=== PATIENT | male | born 1975 | race African-American/Black ===

== ENCOUNTER 2016-11-27 12:50 | Emergency (ER) | payer MEDICAID ==
[~2016-11-27] VITALS: Ht 170.2 cm; Wt 60.0 kg
[~2016-11-27 12:50] MED LIST: CALC667C PO; FOLI1TAB63 PO; KEPP500 PO; PHEN100C4 PO; PYRI50TA9 PO
[2016-11-27 14:58] LABS: HEMATOCRIT. 24.5 % (42.0-52.0); HEMOGLOBIN. 8.4 g/dL (14.0-18.0); MEAN CORPUSCULAR HEMOGLOBIN 34.3 pg (28.0-32.0); MEAN CORPUSCULAR HGB CONC 34.2 g/dL (31.0-37.0); MEAN CORPUSCULAR VOLUME 100.3 fL (80.0-94.0); MEAN PLATELET VOLUME 7.1 fl (7.4-10.4); PLATELET 85 x1000/uL (130-400); RED BLOOD CELL COUNT 2.44 mill/uL (4.7-6.1); WHITE BLOOD COUNT 10.3 x1000/uL (4.5-11.0)
[2016-11-27 15:02] LABS: PROTHROMBIN TIME 10.6 sec
[2016-11-27 15:05] LABS: DIFFERENTIAL COMMENT 1
[2016-11-27 15:09] LABS: ALANINE AMINOTRANSFERASE 11 IU/L (13-61); ALBUMIN 2.7 g/dL (3.4-5.0); ANION GAP 20; CALCIUM 7.9 mg/dL (8.5-10.1); CARBON DIOXIDE 25 mEq/L (21-32); CHLORIDE 97 mEq/L (98-107); INDEX HEMOLYSI 1 (1-3); INDEX ICTERIC 1 (1-4); INDEX LIPEMIC 1 (1-3); UREA NITROGEN BLOOD 40 mg/dL (7-21); eGFR 11 mL/min (>60)
[2016-11-27 15:45] LABS: PLATELET ESTIMATE DECREASED
[2016-11-27] MEDS ORDERED: HYDROCODONE/ACETAMINOPHEN 5/325MG TABLET PO ONE (17:00)
[2016-11-27 19:30] VITALS: BP 170/102
== END 2016-11-27 20:40 | disposition home or self-care (01) ==
LOC: ER 12:53
DX: B34.9 Viral infection, unspecified (principal); N18.6 End stage renal disease; Z99.2 Dependence on renal dialysis; Z86.73 Personal history of transient ischemic attack (TIA), and cerebral infarction without residual deficits; Z79.899 Other long term (current) drug therapy
CPT/HCPCS: 36415; 36556; 71010; 73502; 80053; 83605; 85025; 85610; 87040; 87077; 87086; 87186; 99285

== ENCOUNTER 2016-12-06 21:11 | Emergency (ER) | payer MEDICAID ==
[~2016-12-06] VITALS: Ht 180.3 cm; Wt 61.0 kg
[2016-12-06] MEDS ORDERED: IPRATROPIUM/ALBUTEROL 0.5-3(2.5)MG/3ML NEB HHN ONE (23:15)
[2016-12-06 23:25] VITALS: BP 179/97
[2016-12-06 23:30] LABS: HEMATOCRIT 22.6 % (42.0-52.0); HEMOGLOBIN 7.8 g/dL (14.0-18.0); MEAN CORPUSCULAR HGB CONC 34.3 g/dL (31.0-37.0); PLATELET 271 x1000/uL (130-400); RED BLOOD CELL COUNT 2.28 mill/uL (4.7-6.1); RED CELL DISTRIBUTION WIDTH 14.7 % (11.6-14.6); WHITE BLOOD COUNT 4.7 x1000/uL (4.5-11.0)
[2016-12-06 23:34] LABS: CLARITY URINE TURBID (CLEAR); COLOR URINE YELLOW (YELLOW); GLUCOSE URINE NEGATIVE (NEGATIVE); KETONES URINE NEGATIVE (NEGATIVE); LEUKOCYTE ESTERASE URINE 3+ (NEGATIVE); NITRITE URINE NEGATIVE (NEGATIVE); OCCULT BLOOD URINE 1+ (NEGATIVE); PROTEIN URINE 3+ (NEGATIVE); SPECIFIC GRAVITY URINE 1.013 (1.005-1.030)
[2016-12-06 23:50] LABS: *AMPHETAMINES SCREEN URINE NEGATIVE (NEGATIVE); *BARBITURATES SCREEN URINE NEGATIVE (NEGATIVE); *BENZODIAZEPINES SCREEN URINE NEGATIVE (NEGATIVE); *COCAINE SCREEN URINE NEGATIVE (NEGATIVE); CANNABINOID URINE SCREEN NEGATIVE (NEGATIVE); ECSTASY MDMA SCREEN URINE NEGATIVE (NEGATIVE); METHADONE URINE SCREEN NEGATIVE (NEGATIVE); OPIATES URINE SCREEN NEGATIVE (NEGATIVE); PHENCYCLIDINE URINE SCREEN NEGATIVE (NEGATIVE)
[2016-12-07 00:45] LABS: SQUAMOUS EPITHELIAL CELL URINE FEW /lpf (RARE/1+); WBC URINE TNTC /hpf (0-2)
[2016-12-07 00:47] LABS: BACTERIA URINE 4+
== END 2016-12-07 01:05 | disposition home or self-care (01) ==
LOC: ER 21:14
DX: J45.901 Unspecified asthma with (acute) exacerbation (principal); N39.0 Urinary tract infection, site not specified; Z91.14 Patient's other noncompliance with medication regimen; D53.9 Nutritional anemia, unspecified; R80.9 Proteinuria, unspecified; N17.0 Acute kidney failure with tubular necrosis; F17.210 Nicotine dependence, cigarettes, uncomplicated; Z79.899 Other long term (current) drug therapy; Z86.73 Personal history of transient ischemic attack (TIA), and cerebral infarction without residual deficits; Z99.2 Dependence on renal dialysis
CPT/HCPCS: 36415; 71010; 80305; 81001; 85027; 94640; 99285; Z7610; 80053; J7620

== ENCOUNTER 2017-01-10 23:51 | Emergency (ER) | payer MEDICAID ==
[~2017-01-10] VITALS: Ht 170.2 cm; Wt 55.0 kg
[2017-01-11] MEDS ORDERED: METOPROLOL TARTRATE 25MG TABLET PO ONE (00:30)
[2017-01-11] MEDS ORDERED: SODIUM CHLORIDE 0.9% 500 ML IV ONE (00:53)
[2017-01-11 01:53] LABS: BASOPHILS % 0.3 % (0.0-2.0); EOSINOPHILS % 2.2 % (0.0-5.0); HEMATOCRIT. 30.9 % (42.0-52.0); HEMOGLOBIN. 10.4 g/dL (14.0-18.0); LYMPHOCYTES % 23.4 % (20.0-50.0); MEAN CORPUSCULAR HEMOGLOBIN 32.3 pg (28.0-32.0); MEAN CORPUSCULAR HGB CONC 33.6 g/dL (31.0-37.0); MEAN CORPUSCULAR VOLUME 96.1 fL (80.0-94.0); MEAN PLATELET VOLUME 7.8 fl (7.4-10.4); MONOCYTES % 6.2 % (2.0-8.0); NEUTROPHILS % 67.9 % (40.0-76.0); PLATELET 100 x1000/uL (130-400); RED BLOOD CELL COUNT 3.21 mill/uL (4.7-6.1); RED CELL DISTRIBUTION WIDTH 18.9 % (11.6-14.6); WHITE BLOOD COUNT 4.6 x1000/uL (4.5-11.0)
[2017-01-11 01:55] LABS: CHLORIDE 98 mEq/L (98-107); INDEX HEMOLYSI 2 (1-3); INDEX ICTERIC 1 (1-4); INDEX LIPEMIC 1 (1-3)
[2017-01-11 01:56] LABS: INR 1.1; PROTHROMBIN TIME 10.9 sec
[2017-01-11 02:03] LABS: ALANINE AMINOTRANSFERASE 10 IU/L (13-61); ALBUMIN 2.8 g/dL (3.4-5.0); ANION GAP 14; CALCIUM 8.2 mg/dL (8.5-10.1); CARBON DIOXIDE 29 mEq/L (21-32); UREA NITROGEN BLOOD 27 mg/dL (7-21); eGFR 23 mL/min (>60)
[2017-01-11 03:45] VITALS: BP 165/88
== END 2017-01-11 03:52 | disposition home or self-care (01) ==
LOC: ER 23:55
DX: I12.0 Hypertensive chronic kidney disease with stage 5 chronic kidney disease or end stage renal disease (principal); J45.909 Unspecified asthma, uncomplicated; N18.6 End stage renal disease; Z99.2 Dependence on renal dialysis; Z86.73 Personal history of transient ischemic attack (TIA), and cerebral infarction without residual deficits; Z79.899 Other long term (current) drug therapy
CPT/HCPCS: 36415; 71010; 80053; 85025; 85610; 93005; 99285; Z7610; J7030

== ENCOUNTER 2017-01-27 11:55 | Inpatient (IN) | payer MEDICAID ==
[~2017-01-27] VITALS: Ht 182.9 cm; Wt 51.7 kg
[2017-01-27 13:43] LABS: CLARITY URINE CLEAR (CLEAR); COLOR URINE YELLOW (YELLOW); GLUCOSE URINE NEGATIVE (NEGATIVE); KETONES URINE NEGATIVE (NEGATIVE); LEUKOCYTE ESTERASE URINE 1+ (NEGATIVE); NITRITE URINE NEGATIVE (NEGATIVE); OCCULT BLOOD URINE NEGATIVE (NEGATIVE); PH URINE 8.5 (4.5-8.0); PROTEIN URINE 4+ (NEGATIVE); SPECIFIC GRAVITY URINE 1.014 (1.005-1.030)
[2017-01-27] MEDS ORDERED: HYDR100T26 PO (13:52)
[2017-01-27] MEDS ORDERED: AMLO1TAB39 PO (13:53)
[2017-01-27 14:09] LABS: RBC URINE 0-2 /hpf (0-2); SQUAMOUS EPITHELIAL CELL URINE 1+ /lpf (RARE/1+); WBC URINE 15-25 /hpf (0-2)
[2017-01-27 14:10] LABS: BACTERIA URINE TRACE
[2017-01-27 15:42] LABS: PROTHROMBIN TIME 10.7 sec
[2017-01-27 15:47] LABS: BASOPHILS % 1.1 % (0.0-2.0); DIFFERENTIAL COMMENT 0; EOSINOPHILS % 0.2 % (0.0-5.0); LYMPHOCYTES % 12.2 % (20.0-50.0); MEAN CORPUSCULAR HEMOGLOBIN 33.1 pg (28.0-32.0); MEAN CORPUSCULAR HGB CONC 34.7 g/dL (31.0-37.0); MEAN CORPUSCULAR VOLUME 95.3 fL (80.0-94.0); MEAN PLATELET VOLUME 7.6 fl (7.4-10.4); MONOCYTES % 10.8 % (2.0-8.0); NEUTROPHILS % 75.7 % (40.0-76.0); PLATELET 134 x1000/uL (130-400); RED BLOOD CELL COUNT 1.89 mill/uL (4.7-6.1); RED CELL DISTRIBUTION WIDTH 18.6 % (11.6-14.6); WHITE BLOOD COUNT 5.3 x1000/uL (4.5-11.0)
[2017-01-27 15:49] LABS: ALANINE AMINOTRANSFERASE 8 IU/L (13-61); ALBUMIN 2.4 g/dL (3.4-5.0); ANION GAP 17; CALCIUM 7.9 mg/dL (8.5-10.1); CARBON DIOXIDE 24 mEq/L (21-32); CHLORIDE 97 mEq/L (98-107); INDEX HEMOLYSI 1 (1-3); INDEX ICTERIC 1 (1-4); INDEX LIPEMIC 1 (1-3); PHENYTOIN 17.6 ug/mL (10-20); UREA NITROGEN BLOOD 67 mg/dL (7-21); eGFR 9 mL/min (>60)
[2017-01-27 15:52] LABS: HEMOGLOBIN. 6.2 g/dL (14.0-18.0)
[2017-01-27] MEDS ORDERED: IPRATROPIUM/ALBUTEROL 0.5-3(2.5)MG/3ML NEB INH PRN (16:30)
[2017-01-27] MEDS ORDERED: ACETAMINOPHEN 325MG TABLET PO PRN (16:30)
[2017-01-27] MEDS ORDERED: ONDANSETRON HCL 4MG/2ML VIAL IV PRN (16:30)
[2017-01-27 17:01] LABS: *AMPHETAMINES SCREEN URINE NEGATIVE (NEGATIVE); *BARBITURATES SCREEN URINE NEGATIVE (NEGATIVE); *BENZODIAZEPINES SCREEN URINE NEGATIVE (NEGATIVE); *COCAINE SCREEN URINE NEGATIVE (NEGATIVE); CANNABINOID URINE SCREEN NEGATIVE (NEGATIVE); ECSTASY MDMA SCREEN URINE NEGATIVE (NEGATIVE); METHADONE URINE SCREEN NEGATIVE (NEGATIVE); OPIATES URINE SCREEN NEGATIVE (NEGATIVE); PHENCYCLIDINE URINE SCREEN NEGATIVE (NEGATIVE)
[2017-01-27] MEDS: CLONIDINE 0.1MG TABLET PO PRN (19:33)
[2017-01-27 21:58] VITALS: BP 178/110
[2017-01-27 22:00] VITALS: BP 173/111
[2017-01-27] MEDS: HYDROCODONE/ACETAMINOPHEN 5/325MG TABLET PO PRN (22:56)
[2017-01-27] MEDS: HYDRALAZINE 20MG/ML VIAL IV PRN (23:09)
[2017-01-28] VITALS (22 sets, daily range): BP systolic 139–187; BP diastolic 82–117
[2017-01-28] MEDS: CLONIDINE 0.1MG TABLET PO PRN ×2 (01:38→21:50)
[2017-01-28] MEDS: HYDRALAZINE 20MG/ML VIAL IV PRN ×2 (05:50→23:31)
[2017-01-28] MEDS: HYDROCODONE/ACETAMINOPHEN 5/325MG TABLET PO PRN ×3 (07:01→20:13)
[2017-01-28 07:26] LABS: ALANINE AMINOTRANSFERASE 7 IU/L (13-61); ALBUMIN 2.3 g/dL (3.4-5.0); ANION GAP 18; CALCIUM 7.5 mg/dL (8.5-10.1); CARBON DIOXIDE 23 mEq/L (21-32); CHLORIDE 96 mEq/L (98-107); HDL CHOLESTEROL 81 mg/dL (40-59); INDEX HEMOLYSI 1 (1-3); INDEX ICTERIC 1 (1-4); INDEX LIPEMIC 1 (1-3); LDL CHOLESTEROL 20 mg/dL (5-100); TRIGLYCERIDE 76 mg/dL (0-150); TROPONIN I 0.04 ng/mL (0.00-0.04); UREA NITROGEN BLOOD 69 mg/dL (7-21); eGFR 8 mL/min (>60)
[2017-01-28 07:29] LABS: BASOPHILS % 0.5 % (0.0-2.0); EOSINOPHILS % 0.3 % (0.0-5.0); HEMATOCRIT. 22.1 % (42.0-52.0); HEMOGLOBIN. 7.5 g/dL (14.0-18.0); MEAN CORPUSCULAR HGB CONC 33.9 g/dL (31.0-37.0); MEAN CORPUSCULAR VOLUME 94.4 fL (80.0-94.0); MEAN PLATELET VOLUME 8.1 fl (7.4-10.4); MONOCYTES % 9.4 % (2.0-8.0); NEUTROPHILS % 81.8 % (40.0-76.0); PLATELET 140 x1000/uL (130-400); RED BLOOD CELL COUNT 2.34 mill/uL (4.7-6.1); WHITE BLOOD COUNT 6.4 x1000/uL (4.5-11.0)
[2017-01-28] MEDS: CALCIUM ACETATE 667MG CAPSULE PO SCH ×3 (07:53→17:59)
[2017-01-28] MEDS: HYDRALAZINE HCL 100MG TABLET PO SCH ×3 (07:53→17:04)
[2017-01-28] MEDS: LEVETIRACETAM 500MG TABLET PO SCH (07:53)
[2017-01-28] MEDS: PYRIDOXINE HCL 50MG TABLET PO SCH (07:53)
[2017-01-28] MEDS: PHENYTOIN SODIUM EXTENDED 100MG CAPSULE PO SCH ×3 (07:53→17:02)
[2017-01-28] MEDS ORDERED: GUAIFENESIN 200MG/10ML SUGAR FREE UDC PO PRN (15:45)
[2017-01-29] VITALS (10 sets, daily range): BP systolic 141–182; BP diastolic 76–116
[2017-01-29] MEDS: HYDROCODONE/ACETAMINOPHEN 5/325MG TABLET PO PRN ×2 (04:48→08:55)
[2017-01-29] MEDS: CLONIDINE 0.1MG TABLET PO PRN (04:51)
[2017-01-29 06:57] LABS: CALCIUM 8.2 mg/dL (8.5-10.1)
[2017-01-29 07:23] LABS: BASOPHILS % 0.5 % (0.0-2.0); EOSINOPHILS % 1.1 % (0.0-5.0); HEMATOCRIT. 31.1 % (42.0-52.0); HEMOGLOBIN. 10.2 g/dL (14.0-18.0); LYMPHOCYTES % 9.4 % (20.0-50.0); MEAN CORPUSCULAR HEMOGLOBIN 31.5 pg (28.0-32.0); MEAN CORPUSCULAR HGB CONC 32.8 g/dL (31.0-37.0); MEAN CORPUSCULAR VOLUME 96.1 fL (80.0-94.0); MONOCYTES % 6.1 % (2.0-8.0); NEUTROPHILS % 82.9 % (40.0-76.0); RED BLOOD CELL COUNT 3.23 mill/uL (4.7-6.1)
[2017-01-29 07:27] LABS: DIFFERENTIAL COMMENT 1
[2017-01-29] MEDS: PHENYTOIN SODIUM EXTENDED 100MG CAPSULE PO SCH ×2 (08:51→12:34)
[2017-01-29] MEDS: LEVETIRACETAM 500MG TABLET PO SCH (08:51)
[2017-01-29] MEDS: CALCIUM ACETATE 667MG CAPSULE PO SCH ×2 (08:52→12:34)
[2017-01-29] MEDS: HYDRALAZINE HCL 100MG TABLET PO SCH ×2 (08:56→12:35)
[2017-01-29 08:59] LABS: MEAN PLATELET VOLUME 8.6 fl (7.4-10.4); PLATELET 150 x1000/uL (130-400)
[2017-01-29] MEDS ORDERED: METOPROLOL TARTRATE 25MG TABLET PO SCH (09:00)
[2017-01-29] MEDS: PYRIDOXINE HCL 50MG TABLET PO SCH (09:36)
== END 2017-01-29 14:32 | disposition home or self-care (01) | DRG 460 ==
LOC: ER 12:11 → 3WST 21:31
PROVIDERS: ADMIT Internal Medicine; ATTEND Internal Medicine
PROC: 30233N1 Transfusion of Nonautologous Red Blood Cells into Peripheral Vein, Percutaneous Approach (ICD-10-PCS; 2017-01-27)
PROC: 02HV33Z Insertion of Infusion Device into Superior Vena Cava, Percutaneous Approach (ICD-10-PCS; 2017-01-27)
PROC: B5181ZA Fluoroscopy of Superior Vena Cava using Low Osmolar Contrast, Guidance (ICD-10-PCS; 2017-01-27)
PROC: B548ZZA Ultrasonography of Superior Vena Cava, Guidance (ICD-10-PCS; 2017-01-27)
PROC: 5A1D00Z (ICD-10-PCS; principal; 2017-01-28)
DX: I12.0 Hypertensive chronic kidney disease with stage 5 chronic kidney disease or end stage renal disease (principal); J96.20 Acute and chronic respiratory failure, unspecified whether with hypoxia or hypercapnia; E43 Unspecified severe protein-calorie malnutrition; G93.40 Encephalopathy, unspecified; N18.6 End stage renal disease; E11.22 Type 2 diabetes mellitus with diabetic chronic kidney disease; F17.210 Nicotine dependence, cigarettes, uncomplicated; G40.909 Epilepsy, unspecified, not intractable, without status epilepticus; Z86.73 Personal history of transient ischemic attack (TIA), and cerebral infarction without residual deficits; Z79.899 Other long term (current) drug therapy; Z99.2 Dependence on renal dialysis; Z91.19 Patient's noncompliance with other medical treatment and regimen; D63.8 Anemia in other chronic diseases classified elsewhere
CPT/HCPCS: 36415; 36430; 36569; 71010; 76937; 77001; 80048; 80053; 80061; 80185; 80305; 81001; 83605; 84484; 85025; 85610; 86850; 86900; 86920; 87040; 87077; 87086; 87186; 93005; 93970; 99285; C1725; J0360; J7030; J7040; J7050; P9016

== ENCOUNTER 2017-03-14 20:00 | Inpatient (IN) | payer MEDICAID ==
[~2017-03-14] VITALS: Ht 182.9 cm; Wt 48.5 kg
[~2017-03-14 20:00] MED LIST changes: +AMLO1TAB39 PO; +HYDR100T26 PO
[2017-03-14 20:58] LABS: BASOPHILS % 0.8 % (0.0-2.0); EOSINOPHILS % 1.2 % (0.0-5.0); HEMATOCRIT. 38.9 % (42.0-52.0); HEMOGLOBIN. 13.1 g/dL (14.0-18.0); LYMPHOCYTES % 16.9 % (20.0-50.0); MEAN CORPUSCULAR HEMOGLOBIN 35.1 pg (28.0-32.0); MEAN CORPUSCULAR VOLUME 104.6 fL (80.0-94.0); MEAN PLATELET VOLUME 8.9 fl (7.4-10.4); MONOCYTES % 9.5 % (2.0-8.0); NEUTROPHILS % 71.6 % (40.0-76.0); PLATELET 109 x1000/uL (130-400); RED BLOOD CELL COUNT 3.72 mill/uL (4.7-6.1); RED CELL DISTRIBUTION WIDTH 20.1 % (11.6-14.6)
[2017-03-14 21:01] LABS: CHLORIDE 102 mEq/L (98-107)
[2017-03-14 21:09] LABS: CARBON DIOXIDE 29 mEq/L (21-32); PHENYTOIN 14.2 ug/mL (10-20)
[2017-03-15] VITALS (7 sets, daily range): BP systolic 136–195; BP diastolic 77–115
[2017-03-15] MEDS ORDERED: ACETAMINOPHEN 325MG TABLET PO PRN (00:45)
[2017-03-15] MEDS ORDERED: DIPHENHYDRAMINE 50MG/ML VIAL IV PRN (00:45)
[2017-03-15] MEDS ORDERED: ONDANSETRON HCL 4MG/2ML VIAL IV PRN (00:45)
[2017-03-15] MEDS: CLONIDINE 0.1MG TABLET PO PRN ×3 (01:14→12:39)
[2017-03-15] MEDS: SODIUM CHLORIDE 0.9% INJ 3ML FLUSH IVF SCH ×2 (06:12→12:34)
[2017-03-15] MEDS ORDERED: AMLODIPINE 5MG TABLET PO SCH (08:57)
[2017-03-15] MEDS ORDERED: PYRIDOXINE HCL 50MG TABLET PO SCH (09:00)
[2017-03-15] MEDS ORDERED: LEVETIRACETAM 500MG TABLET PO SCH (09:00)
[2017-03-15] MEDS: PHENYTOIN SODIUM EXTENDED 100MG CAPSULE PO SCH ×2 (09:16→12:39)
[2017-03-15] MEDS ORDERED: LIDOCAINE HCL 1% 20ML VIAL (Pyxis) INJ ONE (11:00)
[2017-03-15] MEDS ORDERED: SODIUM BICARBONATE 4% (2.4MEQ) 5ML VIAL IV ONE (11:00)
[2017-03-15] MEDS ORDERED: CEFAZOLIN 1000MG PREMIX 50 ML IV ONE (11:25)
[2017-03-15] MEDS ORDERED: CEFAZOLIN 1000MG PREMIX 50 ML IV SCH (11:45)
[2017-03-15] MEDS ORDERED: LOSARTAN POTASSIUM 100 MG TABLET PO SCH (13:15)
[2017-03-15] MEDS ORDERED: POTASSIUM CHLORIDE 20MEQ TABLET SR PO NR (13:26)
[2017-03-15] MEDS ORDERED: HYDRALAZINE HCL 100MG TABLET PO SCH (14:00)
== END 2017-03-15 16:47 | disposition home or self-care (01) | DRG 167 ==
LOC: ER 20:00 → 6EST 20:45 → EDBEDREQTM 20:50 → EDBEDREQ 20:50 → ENRESERV 21:06
PROVIDERS: ADMIT Internal Medicine; ATTEND Internal Medicine
PROC: 02PAX3Z Removal of Infusion Device from Heart, External Approach (ICD-10-PCS; principal; 2017-03-15)
PROC: 02H633Z Insertion of Infusion Device into Right Atrium, Percutaneous Approach (ICD-10-PCS; 2017-03-15)
PROC: B2141ZZ Fluoroscopy of Right Heart using Low Osmolar Contrast (ICD-10-PCS; 2017-03-15)
DX: T82.41XA Breakdown (mechanical) of vascular dialysis catheter, initial encounter (principal); E43 Unspecified severe protein-calorie malnutrition; N18.6 End stage renal disease; I12.0 Hypertensive chronic kidney disease with stage 5 chronic kidney disease or end stage renal disease; F17.200 Nicotine dependence, unspecified, uncomplicated; E87.6 Hypokalemia; E83.39 Other disorders of phosphorus metabolism; Y71.2 Prosthetic and other implants, materials and accessory cardiovascular devices associated with adverse incidents; G40.909 Epilepsy, unspecified, not intractable, without status epilepticus; Z99.2 Dependence on renal dialysis; Z86.73 Personal history of transient ischemic attack (TIA), and cerebral infarction without residual deficits; Z86.14 Personal history of Methicillin resistant Staphylococcus aureus infection; Y92.89 Other specified places as the place of occurrence of the external cause
CPT/HCPCS: 36415; 36581; 71010; 77001; 80053; 80185; 85025; 99285; C1750; C1769; J0690; J1642; J3490; J7050

== ENCOUNTER 2017-03-28 00:52 | Emergency (ER) | payer MEDICAID ==
[~2017-03-28] VITALS: Ht 177.8 cm; Wt 75.0 kg
[2017-03-28] MEDS ORDERED: ONDANSETRON HCL 4MG/2ML VIAL IV STA (01:37)
[2017-03-28] MEDS ORDERED: MORPHINE SULFATE 4 MG/ML CPJ (NOT FOR IM USE) IV STA (01:37)
[2017-03-28] MEDS ORDERED: HYDRALAZINE 20MG/ML VIAL IV ONE (01:45)
[2017-03-28] MEDS ORDERED: CLONIDINE 0.3MG TABLET PO ONE (02:45)
[2017-03-28] MEDS ORDERED: ONDANSETRON 4MG ODT PO ONE (02:45)
[2017-03-28] MEDS ORDERED: MORPHINE SULFATE 4 MG/ML CPJ (NOT FOR IM USE) IV ONE (02:45)
[2017-03-28 02:51] LABS: HEMATOCRIT. 38.4 % (42.0-52.0); HEMOGLOBIN. 12.8 g/dL (14.0-18.0); MEAN CORPUSCULAR VOLUME 104.6 fL (80.0-94.0); MEAN PLATELET VOLUME 8.5 fl (7.4-10.4); PLATELET 135 x1000/uL (130-400); RED BLOOD CELL COUNT 3.67 mill/uL (4.7-6.1); RED CELL DISTRIBUTION WIDTH 17.7 % (11.6-14.6)
[2017-03-28 03:08] LABS: CARBON DIOXIDE 25 mEq/L (21-32); CHLORIDE 97 mEq/L (98-107); TROPONIN I 0.03 ng/mL (0.00-0.04)
[2017-03-28 03:54] LABS: ATYPICAL LYMPHOCYTES 1; PLATELET ESTIMATE NORMAL
[2017-03-28 04:10] VITALS: BP 200/106
== END 2017-03-28 04:20 | disposition home or self-care (01) ==
LOC: ER 00:52
DX: I12.0 Hypertensive chronic kidney disease with stage 5 chronic kidney disease or end stage renal disease (principal); N19 Unspecified kidney failure; F17.200 Nicotine dependence, unspecified, uncomplicated; R56.9 Unspecified convulsions; Z99.2 Dependence on renal dialysis; Z86.73 Personal history of transient ischemic attack (TIA), and cerebral infarction without residual deficits
CPT/HCPCS: 36415; 71010; 80053; 84484; 85025; 93005; 96374; 99285; J2270; Q0162; Z7610

== ENCOUNTER 2017-04-05 10:54 | Inpatient (IN) | payer MEDICAID ==
[~2017-04-05] VITALS: Ht 182.9 cm; Wt 54.6 kg
[2017-04-05] MEDS ORDERED: HYDRALAZINE 20MG/ML VIAL IV ONE ×2 (11:30→16:45)
[2017-04-05 12:12] LABS: BG BASE EXCESS -0.7 mmol/L (-2.0-2.0); BG CARBOXYHEMOGLOBIN 1.3 % (0.5-1.5); BG DEOXYHEMOGLOBIN 7.4 % (0.0-5.0); BG FRACTION INSPIRED OXYGEN 26; BG METHEMOGLOBIN 0.2 % (0.0-1.5); BG OXYGEN SATURATION 92.5 % (92.0-98.5); BG OXYHEMOGLOBIN 91.1 % (94.0-97.0); BG PCO2 35.1 mmHg (35.0-45.0); BG PH 7.435 (7.350-7.450); BG PO2 70.2 mmHg (75.0-100.0); BG SAMPLE SITE RIGHT BRACHIAL; BG TOTAL HEMOGLOBIN 13.3 g/dL (12.0-18.0); BG VENT MODE NASAL CANNULA
[2017-04-05] MEDS ORDERED: LORAZEPAM 2MG/ML CPJ IV ONE (12:30)
[2017-04-05] MEDS ORDERED: LABETALOL 5MG/ML SYR 20 MG/4 ML SYRINGE IV ONE (12:30)
[2017-04-05] MEDS ORDERED: LORAZEPAM 2MG/ML CPJ ONE (12:36)
[2017-04-05 13:44] LABS: EOSINOPHILS % 1.3 % (0.0-5.0); HEMATOCRIT. 32.9 % (42.0-52.0); LYMPHOCYTES % 12.9 % (20.0-50.0); MEAN CORPUSCULAR HEMOGLOBIN 33.4 pg (28.0-32.0); MEAN CORPUSCULAR VOLUME 99.6 fL (80.0-94.0); MEAN PLATELET VOLUME 7.7 fl (7.4-10.4); MONOCYTES % 2.8 % (2.0-8.0); PLATELET 248 x1000/uL (130-400); RED CELL DISTRIBUTION WIDTH 17.3 % (11.6-14.6)
[2017-04-05] MEDS ORDERED: LEVETIRACETAM 500MG PREMIX 100 ML IV ONE (13:45)
[2017-04-05 13:47] LABS: PROTHROMBIN TIME 10.6 sec
[2017-04-05] MEDS ORDERED: LEVOFLOXACIN 500MG PREMIX 100 ML IV ONE (14:00)
[2017-04-05 14:01] LABS: CARBON DIOXIDE 23 mEq/L (21-32); CHLORIDE 95 mEq/L (98-107); PHENYTOIN 12.4 ug/mL (10-20); PHOSPHORUS 5.1 mg/dL (2.5-4.9); TROPONIN I 0.04 ng/mL (0.00-0.04)
[2017-04-05] MEDS ORDERED: PHENYTOIN SODIUM 500 MG in SODIUM CHLORIDE 0.9% 50 ML IV ONE (15:15)
[2017-04-05 18:49] VITALS: BP 153/111
[2017-04-05 20:00] VITALS: BP 158/99
[2017-04-05] MEDS ORDERED: NA PHOS,M-B/NA PHOS,DI-BA ENEMA 118ML PR PRN (20:00)
[2017-04-05] MEDS ORDERED: DIPHENHYDRAMINE 50MG/ML VIAL IV PRN (20:00)
[2017-04-05] MEDS ORDERED: ONDANSETRON HCL 4MG/2ML VIAL IV PRN (20:00)
[2017-04-05] MEDS ORDERED: ACETAMINOPHEN 325MG TABLET PO PRN (20:00)
[2017-04-05] MEDS ORDERED: ACETAMINOPHEN 650MG SUPP PR PRN (20:00)
[2017-04-05] MEDS ORDERED: DOCUSATE SODIUM 100MG CAPSULE PO PRN (20:00)
[2017-04-05] MEDS ORDERED: MAGNESIUM/ALUMINUM HYDROXIDE/SIMETHICONE 30ML UDC PO PRN (20:00)
[2017-04-05] MEDS ORDERED: ACETAMINOPHEN 650MG/20.3ML UDC GT PRN (20:00)
[2017-04-05] MEDS ORDERED: GUAIFENESIN 200MG/10ML SUGAR FREE UDC PO PRN (20:00)
[2017-04-05] MEDS ORDERED: HYDROCODONE/ACETAMINOPHEN 5/325MG TABLET PO PRN (20:00)
[2017-04-05] MEDS ORDERED: IPRATROPIUM/ALBUTEROL 0.5-3(2.5)MG/3ML NEB INH PRN (20:00)
[2017-04-05] MEDS: CLONIDINE 0.1MG TABLET PO PRN (21:03)
[2017-04-05] MEDS: ENOXAPARIN 30MG/0.3ML SYR SUBCUT SCH (21:03)
[2017-04-05 22:00] VITALS: BP 170/100
[2017-04-05] MEDS ORDERED: AMLODIPINE BES PO SCH (23:15)
[2017-04-05] MEDS ORDERED: [UNRECOGNIZED DRUG - OTHER] PO SCH (23:15)
[2017-04-05] MEDS ORDERED: OLMESARTAN MED PO SCH (23:15)
[2017-04-05 23:32] LABS: TROPONIN I 0.05 ng/mL (0.00-0.04)
[2017-04-05] MEDS: LOSARTAN POTASSIUM 100 MG TABLET PO SCH (23:48)
[2017-04-05] MEDS: AMLODIPINE 5MG TABLET PO SCH (23:48)
[2017-04-05] MEDS: SODIUM CHLORIDE 0.9% INJ 3ML FLUSH IVF SCH (23:49)
[2017-04-05] MEDS: HYDRALAZINE HCL 100MG TABLET PO SCH (23:49)
[2017-04-05 23:55] VITALS: BP 156/110
[2017-04-06] VITALS (11 sets, daily range): BP systolic 141–181; BP diastolic 91–114
[2017-04-06] MEDS: SODIUM CHLORIDE 0.9% INJ 3ML FLUSH IVF SCH ×3 (06:00→21:55)
[2017-04-06] MEDS ORDERED: LORAZEPAM 2MG/ML CPJ IV PRN (06:00)
[2017-04-06] MEDS: PHENYTOIN SODIUM EXTENDED 100MG CAPSULE PO SCH ×3 (06:02→21:57)
[2017-04-06] MEDS: HYDRALAZINE HCL 100MG TABLET PO SCH ×3 (06:02→21:58)
[2017-04-06 07:02] LABS: BASOPHILS % 0.8 % (0.0-2.0); HEMATOCRIT. 31.7 % (42.0-52.0); HEMOGLOBIN. 10.9 g/dL (14.0-18.0); LYMPHOCYTES % 21.3 % (20.0-50.0); MEAN CORPUSCULAR HEMOGLOBIN 34.2 pg (28.0-32.0); MEAN CORPUSCULAR VOLUME 99.3 fL (80.0-94.0); MEAN PLATELET VOLUME 7.9 fl (7.4-10.4); MONOCYTES % 6.7 % (2.0-8.0); NEUTROPHILS % 70.2 % (40.0-76.0); PLATELET 243 x1000/uL (130-400); RED CELL DISTRIBUTION WIDTH 18.1 % (11.6-14.6)
[2017-04-06 07:22] LABS: CARBON DIOXIDE 22 mEq/L (21-32); CHLORIDE 94 mEq/L (98-107); CREATINE KINASE 52 IU/L (39-308); HDL CHOLESTEROL 52 mg/dL (40-59); LDL CHOLESTEROL 54 mg/dL (5-100); TROPONIN I 0.04 ng/mL (0.00-0.04)
[2017-04-06] MEDS: LEVETIRACETAM 500MG TABLET PO SCH (08:32)
[2017-04-06] MEDS: AMLODIPINE 5MG TABLET PO SCH (08:32)
[2017-04-06] MEDS: LOSARTAN POTASSIUM 100 MG TABLET PO SCH (08:32)
[2017-04-06 10:47] LABS: CLARITY URINE CLOUDY (CLEAR); COLOR URINE YELLOW (YELLOW); GLUCOSE URINE NEGATIVE (NEGATIVE); KETONES URINE NEGATIVE (NEGATIVE); LEUKOCYTE ESTERASE URINE 3+ (NEGATIVE); NITRITE URINE NEGATIVE (NEGATIVE); OCCULT BLOOD URINE TRACE (NEGATIVE); PH URINE >=9.0 (4.5-8.0); PROTEIN URINE 2+ (NEGATIVE); SPECIFIC GRAVITY URINE 1.013 (1.005-1.030); UROBILINOGEN URINE 0.2 E.U./dL (0.2-1.0)
[2017-04-06] MEDS: CLONIDINE 0.1MG TABLET PO PRN (18:04)
[2017-04-06] MEDS: ENOXAPARIN 30MG/0.3ML SYR SUBCUT SCH (21:54)
[2017-04-07] VITALS (11 sets, daily range): BP systolic 117–172; BP diastolic 78–101
[2017-04-07] MEDS: CLONIDINE 0.1MG TABLET PO PRN (04:06)
[2017-04-07] MEDS: SODIUM CHLORIDE 0.9% INJ 3ML FLUSH IVF SCH ×2 (04:19→13:32)
[2017-04-07] MEDS: HYDRALAZINE HCL 100MG TABLET PO SCH ×2 (06:00→13:33)
[2017-04-07] MEDS: PHENYTOIN SODIUM EXTENDED 100MG CAPSULE PO SCH ×2 (06:00→13:33)
[2017-04-07] MEDS: AMLODIPINE 5MG TABLET PO SCH (08:08)
[2017-04-07] MEDS: LOSARTAN POTASSIUM 100 MG TABLET PO SCH (08:09)
[2017-04-07] MEDS: LEVETIRACETAM 500MG TABLET PO SCH (08:09)
[2017-04-07] MEDS ORDERED: LEVOFLOXACIN 250MG TABLET PO SCH (11:00)
[2017-04-07 16:28] LABS: BASOPHILS % 1.3 % (0.0-2.0); EOSINOPHILS % 1.5 % (0.0-5.0); HEMOGLOBIN. 12.2 g/dL (14.0-18.0); LYMPHOCYTES % 26.7 % (20.0-50.0); MEAN CORPUSCULAR HEMOGLOBIN 33.8 pg (28.0-32.0); MEAN CORPUSCULAR VOLUME 99.7 fL (80.0-94.0); MEAN PLATELET VOLUME 8.4 fl (7.4-10.4); MONOCYTES % 9.6 % (2.0-8.0); NEUTROPHILS % 60.9 % (40.0-76.0); PLATELET 249 x1000/uL (130-400); RED BLOOD CELL COUNT 3.61 mill/uL (4.7-6.1); RED CELL DISTRIBUTION WIDTH 17.7 % (11.6-14.6)
[2017-04-07 16:49] LABS: CARBON DIOXIDE 32 mEq/L (21-32); CHLORIDE 95 mEq/L (98-107)
== END 2017-04-07 19:00 | disposition home or self-care (01) | DRG 199 ==
LOC: ER 10:55 → 3WST 14:22 → EDBEDREQ 14:28 → ENRESERV 14:33 → 3WST 18:59
PROVIDERS: ADMIT Family Medicine; ATTEND Family Medicine
DX: I16.9 Hypertensive crisis, unspecified (principal); E43 Unspecified severe protein-calorie malnutrition; I50.31 Acute diastolic (congestive) heart failure; N17.9 Acute kidney failure, unspecified; N18.6 End stage renal disease; E87.2 Acidosis; B19.20 Unspecified viral hepatitis C without hepatic coma; D64.9 Anemia, unspecified; E83.39 Other disorders of phosphorus metabolism; E83.41 Hypermagnesemia; G40.909 Epilepsy, unspecified, not intractable, without status epilepticus; G81.94 Hemiplegia, unspecified affecting left nondominant side; M21.371 Foot drop, right foot; M21.372 Foot drop, left foot; N39.0 Urinary tract infection, site not specified; R62.7 Adult failure to thrive; Z72.0 Tobacco use; Z74.01 Bed confinement status; Z79.899 Other long term (current) drug therapy; Z86.14 Personal history of Methicillin resistant Staphylococcus aureus infection; Z86.73 Personal history of transient ischemic attack (TIA), and cerebral infarction without residual deficits; Z99.2 Dependence on renal dialysis; I13.2 Hypertensive heart and chronic kidney disease with heart failure and with stage 5 chronic kidney disease, or end stage renal disease
CPT/HCPCS: 36415; 36600; 70450; 71010; 80053; 80061; 80185; 81001; 82375; 82550; 82805; 83605; 83735; 84100; 84484; 85025; 85610; 86850; 86900; 87040; 87077; 87086; 87186; 93005; 96365; 96368; 96375; 99291; J0360; J1165; J1650; J1953; J1956; J2060; J3490; J7030

== ENCOUNTER 2017-10-01 14:16 | Emergency (ER) | payer MEDICAID ==
[~2017-10-01] VITALS: Ht 172.7 cm; Wt 65.0 kg
[~2017-10-01 14:16] MED LIST changes: +AMLO10TA80 PO; +KEPP250 PO; +LISI40TA4 PO; +METR500T4 PO
[2017-10-01 15:33] LABS: EOSINOPHILS % 2.9 % (0.0-5.0); HEMATOCRIT. 29.9 % (42.0-52.0); HEMOGLOBIN. 10.2 g/dL (14.0-18.0); LYMPHOCYTES % 26.2 % (20.0-50.0); MEAN CORPUSCULAR HEMOGLOBIN 33.6 pg (28.0-32.0); MEAN CORPUSCULAR VOLUME 99.1 fL (80.0-94.0); MEAN PLATELET VOLUME 7.5 fl (7.4-10.4); MONOCYTES % 8.3 % (2.0-8.0); NEUTROPHILS % 61.6 % (40.0-76.0); PLATELET 361 x1000/uL (130-400); RED BLOOD CELL COUNT 3.02 mill/uL (4.7-6.1); RED CELL DISTRIBUTION WIDTH 15.9 % (11.6-14.6)
[2017-10-01 15:38] LABS: INR 1.1; PROTHROMBIN TIME 11.1 sec (9.4-11.6)
[2017-10-01 15:41] LABS: CHLORIDE 99 mEq/L (98-107)
[2017-10-01 15:49] LABS: CARBON DIOXIDE 23 mEq/L (21-32)
[2017-10-01] MEDS ORDERED: OXYCODONE HCL/ACETAMINOPHEN 5/325MG TABLET PO ONE (16:45)
[2017-10-01 20:29] VITALS: BP 142/107
== END 2017-10-01 20:39 | disposition home or self-care (01) ==
LOC: ER 14:35
DX: S90.32XA Contusion of left foot, initial encounter (principal); S70.02XA Contusion of left hip, initial encounter; I12.0 Hypertensive chronic kidney disease with stage 5 chronic kidney disease or end stage renal disease; N18.6 End stage renal disease; Z99.2 Dependence on renal dialysis; W19.XXXA Unspecified fall, initial encounter; Y93.89 Activity, other specified; Y92.89 Other specified places as the place of occurrence of the external cause; Y99.8 Other external cause status
CPT/HCPCS: 36415; 73502; 73630; 80053; 85025; 85610; 99285

== ENCOUNTER 2018-12-29 04:58 | Inpatient (IN) | payer MEDICAID ==
[~2018-12-29] VITALS: Ht 170.2 cm; Wt 52.7 kg
[~2018-12-29 04:58] MED LIST changes: +LEVO750T46 PO; -LISI40TA4 PO; +METO25TA6 PO; -METR500T4 PO
[2018-12-29] MEDS ORDERED: ONDANSETRON HCL 4MG/2ML INJ IV STA (05:27)
[2018-12-29] MEDS ORDERED: SODIUM CHLORIDE 0.9% 1,000 ML IV ONE (05:27)
[2018-12-29] MEDS ORDERED: LEVETIRACETAM 500MG PREMIX 100 ML IV ONE (05:30)
[2018-12-29] MEDS ORDERED: LORAZEPAM 2MG/ML CPJ IV ONE (05:30)
[2018-12-29 05:57] LABS: CHLORIDE 93 mEq/L (98-107)
[2018-12-29 06:57] LABS: BASOPHILS % 0.9 % (0.0-2.0); EOSINOPHILS % 2.5 % (0.0-5.0); HEMATOCRIT. 39.9 % (42.0-52.0); HEMOGLOBIN. 13.2 g/dL (14.0-18.0); LYMPHOCYTES % 15.8 % (20.0-50.0); MEAN CORPUSCULAR HEMOGLOBIN 33.2 pg (28.0-32.0); MEAN CORPUSCULAR VOLUME 100.3 fL (80.0-94.0); MEAN PLATELET VOLUME 8.3 fl (7.4-10.4); MONOCYTES % 8.4 % (2.0-8.0); NEUTROPHILS % 72.4 % (40.0-76.0); PLATELET 246 x1000/uL (130-400); RED BLOOD CELL COUNT 3.97 mill/uL (4.7-6.1); RED CELL DISTRIBUTION WIDTH 15.8 % (11.6-14.6)
[2018-12-29] MEDS ORDERED: MAGNESIUM/ALUMINUM HYDROXIDE/SIMETHICONE 30ML UDC PO PRN (13:30)
[2018-12-29] MEDS ORDERED: DIPHENHYDRAMINE 50MG/ML VIAL IV PRN (13:30)
[2018-12-29] MEDS ORDERED: CLONIDINE 0.1MG TABLET PO PRN (13:30)
[2018-12-29] MEDS ORDERED: DOCUSATE SODIUM 100MG CAPSULE PO PRN (13:30)
[2018-12-29] MEDS ORDERED: ACETAMINOPHEN 325MG TABLET PO PRN (13:30)
[2018-12-29] MEDS ORDERED: NA PHOS,M-B/NA PHOS,DI-BA ENEMA 118ML PR PRN (13:30)
[2018-12-29] MEDS ORDERED: ENOXAPARIN 40MG/0.4ML SYR SUBCUT SCH (13:30)
[2018-12-29] MEDS ORDERED: ONDANSETRON HCL 4MG/2ML INJ IV PRN (13:30)
[2018-12-29] MEDS ORDERED: GUAIFENESIN 200MG/10ML SUGAR FREE UDC PO PRN (13:30)
[2018-12-29] MEDS ORDERED: LORAZEPAM 2MG/ML CPJ IV PRN (13:30)
[2018-12-29] MEDS ORDERED: IPRATROPIUM/ALBUTEROL 0.5-3(2.5)MG/3ML NEB INH PRN (13:30)
[2018-12-29] MEDS ORDERED: HYDROCODONE/ACETAMINOPHEN 5/325MG TABLET PO PRN (13:30)
[2018-12-29 16:00] VITALS: BP 127/85
[2018-12-29] MEDS ORDERED: MORPHINE SULFATE 4 MG/ML CPJ (NOT FOR IM USE) IV PRN (16:45)
[2018-12-29 17:00] VITALS: BP 127/85
[2018-12-29 20:00] VITALS: BP 126/82
[2018-12-30 00:25] VITALS: BP 116/66
[2018-12-30 04:00] VITALS: BP 130/83
[2018-12-30 07:49] LABS: BASOPHILS % 1.5 % (0.0-2.0); EOSINOPHILS % 2.8 % (0.0-5.0); HEMATOCRIT. 45.2 % (42.0-52.0); HEMOGLOBIN. 14.9 g/dL (14.0-18.0); LYMPHOCYTES % 24.9 % (20.0-50.0); MEAN CORPUSCULAR HEMOGLOBIN 33.4 pg (28.0-32.0); MEAN CORPUSCULAR VOLUME 101.4 fL (80.0-94.0); MONOCYTES % 8.5 % (2.0-8.0); NEUTROPHILS % 62.3 % (40.0-76.0); PLATELET 238 x1000/uL (130-400); RED BLOOD CELL COUNT 4.46 mill/uL (4.7-6.1); RED CELL DISTRIBUTION WIDTH 15.7 % (11.6-14.6)
[2018-12-30 08:00] VITALS: BP 129/78
[2018-12-30 08:12] LABS: CHLORIDE 99 mEq/L (98-107)
[2018-12-30 08:20] LABS: LDL CHOLESTEROL 79 mg/dL (5-100)
[2018-12-30 08:22] LABS: HDL CHOLESTEROL 58 mg/dL (40-59)
[2018-12-30 08:24] LABS: T4 FREE 0.85 ng/dL (0.76-1.46)
[2018-12-30] MEDS: ASPIRIN 81MG EC TABLET PO SCH (08:57)
[2018-12-30 12:00] VITALS: BP 121/72
[2018-12-30] MEDS ORDERED: LEVETIRACETAM 500MG TABLET PO SCH (13:48)
[2018-12-30] MEDS: PHENYTOIN SODIUM EXTENDED 100MG CAPSULE PO SCH (14:16)
[2018-12-30 16:00] VITALS: BP 127/80
[2018-12-30] MEDS: LEVETIRACETAM 500MG TABLET PO SCH (17:00)
[2018-12-30 20:14] VITALS: BP 115/80
[2018-12-31 00:14] VITALS: BP 114/69
[2018-12-31 04:00] VITALS: BP 124/85
[2018-12-31 07:51] LABS: BASOPHILS % 1.2 % (0.0-2.0); HEMATOCRIT. 42.3 % (42.0-52.0); HEMOGLOBIN. 13.9 g/dL (14.0-18.0); MEAN CORPUSCULAR HEMOGLOBIN 33.6 pg (28.0-32.0); MEAN PLATELET VOLUME 8.7 fl (7.4-10.4); MONOCYTES % 9.1 % (2.0-8.0); NEUTROPHILS % 62.7 % (40.0-76.0); PLATELET 207 x1000/uL (130-400); RED BLOOD CELL COUNT 4.15 mill/uL (4.7-6.1); RED CELL DISTRIBUTION WIDTH 15.2 % (11.6-14.6)
[2018-12-31 08:00] VITALS: BP 129/86
[2018-12-31] MEDS: LEVETIRACETAM 500MG TABLET PO SCH (09:00)
[2018-12-31] MEDS: ASPIRIN 81MG EC TABLET PO SCH (09:24)
[2018-12-31] MEDS: PHENYTOIN SODIUM EXTENDED 100MG CAPSULE PO SCH (09:24)
[2018-12-31 11:50] VITALS: BP 125/74
[2018-12-31 12:00] VITALS: BP 121/77
== END 2018-12-31 17:06 | disposition home or self-care (01) | DRG 53 ==
LOC: EDUNIT# 04:58 → ER 04:58 → 6WST 12:50 → EDBEDREQTM 12:53 → EDBEDREQ 12:53 → CANRESERV 15:17 → ENRESERV 15:17
PROVIDERS: ADMIT Internal Medicine; ATTEND Internal Medicine
PROC: 5A1D70Z Performance of Urinary Filtration, Intermittent, Less than 6 Hours Per Day (ICD-10-PCS; principal; 2018-12-30)
PROC: 5A1D70Z Performance of Urinary Filtration, Intermittent, Less than 6 Hours Per Day (ICD-10-PCS; 2018-12-31)
DX: G40.419 Other generalized epilepsy and epileptic syndromes, intractable, without status epilepticus (principal); I12.0 Hypertensive chronic kidney disease with stage 5 chronic kidney disease or end stage renal disease; I69.354 Hemiplegia and hemiparesis following cerebral infarction affecting left non-dominant side; N18.6 End stage renal disease; R74.0 Nonspecific elevation of levels of transaminase and lactic acid dehydrogenase [LDH]; D64.9 Anemia, unspecified; F17.210 Nicotine dependence, cigarettes, uncomplicated; Z99.2 Dependence on renal dialysis; Z79.899 Other long term (current) drug therapy; Z91.018 Allergy to other foods; Z82.49 Family history of ischemic heart disease and other diseases of the circulatory system
CPT/HCPCS: 36415; 71045; 80048; 80061; 80185; 80320; 84439; 84443; 84484; 93005; 93306; 96374; 96375; 99285; J1953; J2060; J2405; J7030; G0480

== ENCOUNTER 2019-02-05 22:40 | Inpatient (IN) | payer MEDICAID ==
[~2019-02-05] VITALS: Ht 170.2 cm; Wt 59.1 kg
[~2019-02-05 22:40] MED LIST changes: -AMLO10TA80 PO; -KEPP500 PO; -METO25TA6 PO; +PYRI-7 PO; -PYRI50TA9 PO
[2019-02-05] MEDS ORDERED: ASPIRIN 325MG TABLET PO ONE (23:15)
[2019-02-05 23:27] LABS: BASOPHILS % 0.7 % (0.0-2.0); EOSINOPHILS % 1.2 % (0.0-5.0); HEMATOCRIT. 28.1 % (42.0-52.0); HEMOGLOBIN. 9.8 g/dL (14.0-18.0); MEAN CORPUSCULAR HEMOGLOBIN 32.4 pg (28.0-32.0); MEAN CORPUSCULAR VOLUME 92.8 fL (80.0-94.0); MEAN PLATELET VOLUME 6.8 fl (7.4-10.4); MONOCYTES % 8.9 % (2.0-8.0); NEUTROPHILS % 75.2 % (40.0-76.0); PLATELET 223 x1000/uL (130-400); RED BLOOD CELL COUNT 3.03 mill/uL (4.7-6.1); RED CELL DISTRIBUTION WIDTH 14.3 % (11.6-14.6)
[2019-02-05 23:34] LABS: CHLORIDE 96 mEq/L (98-107)
[2019-02-05 23:39] LABS: ETHANOL BLOOD 50 mg/dL
[2019-02-06] MEDS ORDERED: HEPARIN 25,000 UNITS PREMIX 500 ML IV PRN
[2019-02-06] MEDS ORDERED: POTASSIUM CHLORIDE INJ 40 MEQ in DEXT 5% WATER 250 ML IV ONE ×2
[2019-02-06] MEDS ORDERED: HEPARIN 5000 UNITS/ML VIAL IV SCH
[2019-02-06] MEDS ORDERED: ENOXAPARIN 40MG/0.4ML SYR SUBCUT SCH (01:00)
[2019-02-06] MEDS ORDERED: ONDANSETRON HCL 4MG/2ML INJ IV PRN (01:00)
[2019-02-06] MEDS ORDERED: IPRATROPIUM/ALBUTEROL 0.5-3(2.5)MG/3ML NEB INH PRN (01:00)
[2019-02-06] MEDS ORDERED: ACETAMINOPHEN 650MG/20.3ML UDC GT PRN (01:00)
[2019-02-06] MEDS ORDERED: ACETAMINOPHEN 650MG SUPP PR PRN (01:00)
[2019-02-06] MEDS ORDERED: GUAIFENESIN 200MG/10ML SUGAR FREE UDC PO PRN (01:00)
[2019-02-06] MEDS ORDERED: DOCUSATE SODIUM 100MG CAPSULE PO PRN (01:00)
[2019-02-06] MEDS ORDERED: NA PHOS,M-B/NA PHOS,DI-BA ENEMA 118ML PR PRN (01:00)
[2019-02-06] MEDS ORDERED: ACETAMINOPHEN 325MG TABLET PO PRN (01:00)
[2019-02-06] MEDS ORDERED: HYDROCODONE/ACETAMINOPHEN 5/325MG TABLET PO PRN (01:00)
[2019-02-06] MEDS ORDERED: CLONIDINE 0.1MG TABLET PO PRN (01:00)
[2019-02-06] MEDS ORDERED: HYDROCODONE/ACETAMINOPHEN 10/325MG TABLET PO PRN (01:00)
[2019-02-06] MEDS ORDERED: DIPHENHYDRAMINE 50MG/ML VIAL IV PRN (01:00)
[2019-02-06] MEDS ORDERED: MAGNESIUM/ALUMINUM HYDROXIDE/SIMETHICONE 30ML UDC PO PRN (01:00)
[2019-02-06 03:28] VITALS: BP 139/85
[2019-02-06 04:00] VITALS: BP 122/80
[2019-02-06] MEDS: SODIUM CHLORIDE 0.9% INJ 3ML FLUSH IVF SCH ×3 (06:44→21:42)
[2019-02-06 08:00] VITALS: BP 129/89
[2019-02-06] MEDS ORDERED: POTASSIUM CHLORIDE 20MEQ TABLET SR PO ONE ×2 (08:15)
[2019-02-06] MEDS: ENOXAPARIN 60MG/0.6ML SYR SUBCUT SCH (08:48)
[2019-02-06] MEDS: ASPIRIN 81MG TABLET PO SCH (08:50)
[2019-02-06] MEDS ORDERED: ENOXAPARIN 30MG/0.3ML SYR SUBCUT SCH (09:00)
[2019-02-06] MEDS ORDERED: ASPIRIN 81MG EC TABLET PO SCH (09:00)
[2019-02-06] MEDS ORDERED: ASPIRIN 81MG TABLET PO SCH (09:00)
[2019-02-06 09:51] LABS: BASOPHILS % 0.7 % (0.0-2.0); EOSINOPHILS % 1.1 % (0.0-5.0); HEMATOCRIT. 32.4 % (42.0-52.0); HEMOGLOBIN. 10.8 g/dL (14.0-18.0); LYMPHOCYTES % 14.3 % (20.0-50.0); MEAN CORPUSCULAR HEMOGLOBIN 31.6 pg (28.0-32.0); MEAN CORPUSCULAR VOLUME 94.4 fL (80.0-94.0); MEAN PLATELET VOLUME 7.4 fl (7.4-10.4); MONOCYTES % 9.5 % (2.0-8.0); NEUTROPHILS % 74.4 % (40.0-76.0); PLATELET 225 x1000/uL (130-400); RED BLOOD CELL COUNT 3.43 mill/uL (4.7-6.1); RED CELL DISTRIBUTION WIDTH 14.4 % (11.6-14.6)
[2019-02-06 09:59] LABS: CHLORIDE 99 mEq/L (98-107)
[2019-02-06 10:06] LABS: LDL CHOLESTEROL 72 mg/dL (5-100)
[2019-02-06 10:07] LABS: CREATINE KINASE 101 IU/L (39-308)
[2019-02-06 10:08] LABS: HDL CHOLESTEROL 56 mg/dL (40-59)
[2019-02-06 10:09] LABS: PROTHROMBIN TIME 10.7 sec (9.6-11.0)
[2019-02-06 10:10] LABS: CREATINE KINASE MB FRACTION 4.3 ng/mL (0.5-3.6)
[2019-02-06 12:00] VITALS: BP 121/84
[2019-02-06 15:57] LABS: CLARITY URINE TURBID (CLEAR); COLOR URINE YELLOW (YELLOW); KETONES URINE NEGATIVE (NEGATIVE); LEUKOCYTE ESTERASE URINE 3+ (NEGATIVE); NITRITE URINE NEGATIVE (NEGATIVE); OCCULT BLOOD URINE 2+ (NEGATIVE); PH URINE 8.5 (4.5-8.0); PROTEIN URINE 3+ (NEGATIVE); SPECIFIC GRAVITY URINE 1.014 (1.005-1.030)
[2019-02-06 16:00] VITALS: BP 126/79
[2019-02-06 16:29] LABS: *AMPHETAMINES SCREEN URINE NEGATIVE (NEGATIVE); *BARBITURATES SCREEN URINE NEGATIVE (NEGATIVE); *BENZODIAZEPINES SCREEN URINE NEGATIVE (NEGATIVE); *COCAINE SCREEN URINE NEGATIVE (NEGATIVE); METHADONE URINE SCREEN NEGATIVE (NEGATIVE)
[2019-02-06 16:30] LABS: CANNABINOID URINE SCREEN NEGATIVE (NEGATIVE); OPIATES URINE SCREEN NEGATIVE (NEGATIVE); PHENCYCLIDINE URINE SCREEN NEGATIVE (NEGATIVE)
[2019-02-06] MEDS ORDERED: LOPERAMIDE 2 MG/10 ML UDC PO ONE (20:00)
[2019-02-06] MEDS ORDERED: LOPERAMIDE 2 MG/10 ML UDC PO NR (20:00)
[2019-02-06 20:13] VITALS: BP 120/84
[2019-02-06 20:21] LABS: CREATINE KINASE MB FRACTION 2.6 ng/mL (0.5-3.6)
[2019-02-06] MEDS: LEVETIRACETAM 500MG/5ML CUP PO SCH (21:41)
[2019-02-06] MEDS: PHENYTOIN SODIUM 100MG/2ML VIAL IV SCH (21:41)
[2019-02-07 00:09] VITALS: BP 128/82
[2019-02-07] MEDS: MORPHINE SULFATE 2 MG/ML CPJ (NOT FOR IM USE) IV PRN ×3 (00:21→21:13)
[2019-02-07 04:13] VITALS: BP 119/78
[2019-02-07] MEDS: SODIUM CHLORIDE 0.9% INJ 3ML FLUSH IVF SCH ×3 (05:08→21:12)
[2019-02-07 07:15] LABS: BASOPHILS % 0.7 % (0.0-2.0); EOSINOPHILS % 1.7 % (0.0-5.0); HEMATOCRIT. 27.7 % (42.0-52.0); HEMOGLOBIN. 9.3 g/dL (14.0-18.0); LYMPHOCYTES % 19.5 % (20.0-50.0); MEAN CORPUSCULAR HEMOGLOBIN 32.1 pg (28.0-32.0); MEAN CORPUSCULAR VOLUME 95.6 fL (80.0-94.0); MEAN PLATELET VOLUME 7.7 fl (7.4-10.4); MONOCYTES % 9.1 % (2.0-8.0); PLATELET 233 x1000/uL (130-400); RED CELL DISTRIBUTION WIDTH 14.4 % (11.6-14.6)
[2019-02-07 07:56] LABS: HDL CHOLESTEROL 64 mg/dL (40-59); LDL CHOLESTEROL 46 mg/dL (5-100)
[2019-02-07 07:57] LABS: CREATINE KINASE 50 IU/L (39-308)
[2019-02-07 07:58] LABS: CREATINE KINASE MB FRACTION 1.4 ng/mL (0.5-3.6)
[2019-02-07 08:00] VITALS: BP 164/68
[2019-02-07 08:02] LABS: CHLORIDE 97 mEq/L (98-107)
[2019-02-07] MEDS: LEVETIRACETAM 500MG/5ML CUP PO SCH ×2 (08:44→21:12)
[2019-02-07] MEDS: PHENYTOIN SODIUM 100MG/2ML VIAL IV SCH ×2 (08:45→21:12)
[2019-02-07] MEDS: ASPIRIN 81MG TABLET PO SCH (08:45)
[2019-02-07] MEDS: ENOXAPARIN 60MG/0.6ML SYR SUBCUT SCH (09:00)
[2019-02-07 12:00] VITALS: BP 112/68
[2019-02-07 16:00] VITALS: BP 123/62
[2019-02-07 20:35] VITALS: BP 109/69
[2019-02-07 21:34] LABS: CREATINE KINASE 38 IU/L (39-308)
[2019-02-07 21:36] LABS: CREATINE KINASE MB FRACTION < 1.0 ng/mL (0.5-3.6)
[2019-02-08 00:40] VITALS: BP 121/76
[2019-02-08] MEDS: MORPHINE SULFATE 2 MG/ML CPJ (NOT FOR IM USE) IV PRN ×3 (01:40→12:48)
[2019-02-08 04:00] VITALS: BP 107/62
[2019-02-08] MEDS: SODIUM CHLORIDE 0.9% INJ 3ML FLUSH IVF SCH ×3 (05:39→21:06)
[2019-02-08 08:00] VITALS: BP 125/83
[2019-02-08 08:12] LABS: BASOPHILS % 0.5 % (0.0-2.0); EOSINOPHILS % 2.3 % (0.0-5.0); HEMATOCRIT. 27.3 % (42.0-52.0); HEMOGLOBIN. 9.1 g/dL (14.0-18.0); LYMPHOCYTES % 19.7 % (20.0-50.0); MEAN CORPUSCULAR HEMOGLOBIN 31.9 pg (28.0-32.0); MEAN CORPUSCULAR VOLUME 95.6 fL (80.0-94.0); MEAN PLATELET VOLUME 7.7 fl (7.4-10.4); MONOCYTES % 6.5 % (2.0-8.0); PLATELET 255 x1000/uL (130-400); RED BLOOD CELL COUNT 2.86 mill/uL (4.7-6.1); RED CELL DISTRIBUTION WIDTH 14.4 % (11.6-14.6)
[2019-02-08] MEDS: LEVETIRACETAM 500MG/5ML CUP PO SCH ×2 (08:45→20:52)
[2019-02-08] MEDS: PHENYTOIN SODIUM 100MG/2ML VIAL IV SCH ×2 (08:45→20:52)
[2019-02-08 08:46] LABS: PHOSPHORUS 2.9 mg/dL (2.5-4.9)
[2019-02-08] MEDS: ENOXAPARIN 60MG/0.6ML SYR SUBCUT SCH (08:46)
[2019-02-08] MEDS: ASPIRIN 81MG TABLET PO SCH (08:46)
[2019-02-08] MEDS ORDERED: LEVOFLOXACIN 500MG TABLET PO SCH ×2 (09:00→11:00)
[2019-02-08 11:57] VITALS: BP 119/76
[2019-02-08 16:25] VITALS: BP 128/79
[2019-02-08 20:32] VITALS: BP 124/86
[2019-02-08] MEDS ORDERED: EPOETIN ALFA 4000UNITS/ML VIAL SUBCUT SCH (21:00)
[2019-02-09] VITALS (14 sets, daily range): BP systolic 110–152; BP diastolic 66–88
[2019-02-09] MEDS: SODIUM CHLORIDE 0.9% INJ 3ML FLUSH IVF SCH ×3 (05:04→22:22)
[2019-02-09] MEDS: CLOPIDOGREL 75MG TABLET PO SCH (09:26)
[2019-02-09] MEDS: ASPIRIN 81MG TABLET PO SCH (09:26)
[2019-02-09] MEDS: LEVETIRACETAM 500MG/5ML CUP PO SCH ×2 (09:27→20:41)
[2019-02-09] MEDS: PHENYTOIN SODIUM 100MG/2ML VIAL IV SCH (11:19)
[2019-02-09 12:33] LABS: HEMATOCRIT 26.4 % (42.0-52.0); HEMOGLOBIN 8.6 g/dL (14.0-18.0); MEAN CORPUSCULAR HEMOGLOBIN 31.2 pg (28.0-32.0); MEAN CORPUSCULAR VOLUME 95.9 fL (80.0-94.0); PLATELET 253 x1000/uL (130-400); RED BLOOD CELL COUNT 2.75 mill/uL (4.7-6.1); RED CELL DISTRIBUTION WIDTH 14.6 % (11.6-14.6)
[2019-02-09] MEDS ORDERED: MIDAZOLAM HCL 2 MG/2 ML VIAL ONE (14:44)
[2019-02-09] MEDS ORDERED: FENTANYL CITRATE/PF 50MCG/ML 2ML VIAL ONE (14:44)
[2019-02-09] MEDS ORDERED: IODIXANOL 320MG/ML 100 ML BOTTLE IV ONE (14:45)
[2019-02-09] MEDS ORDERED: LIDOCAINE HCL 1% 20ML VIAL (Pyxis) INJ ONE (14:45)
[2019-02-09] MEDS ORDERED: ASPI-1160 PO (16:32)
[2019-02-09] MEDS ORDERED: LEVO500T2 PO (16:35)
[2019-02-09] MEDS: PHENYTOIN SODIUM EXTENDED 100MG CAPSULE PO SCH (20:41)
[2019-02-10] VITALS (8 sets, daily range): BP systolic 117–151; BP diastolic 73–94
[2019-02-10] MEDS: SODIUM CHLORIDE 0.9% INJ 3ML FLUSH IVF SCH (06:13)
[2019-02-10 07:12] LABS: BASOPHILS % 0.6 % (0.0-2.0); EOSINOPHILS % 2.1 % (0.0-5.0); HEMATOCRIT. 25.8 % (42.0-52.0); HEMOGLOBIN. 8.7 g/dL (14.0-18.0); LYMPHOCYTES % 16.1 % (20.0-50.0); MEAN CORPUSCULAR HEMOGLOBIN 32.2 pg (28.0-32.0); MEAN CORPUSCULAR VOLUME 95.4 fL (80.0-94.0); MEAN PLATELET VOLUME 7.2 fl (7.4-10.4); MONOCYTES % 8.7 % (2.0-8.0); NEUTROPHILS % 72.5 % (40.0-76.0); PLATELET 254 x1000/uL (130-400); RED CELL DISTRIBUTION WIDTH 14.8 % (11.6-14.6)
[2019-02-10 08:32] LABS: PHOSPHORUS 2.3 mg/dL (2.5-4.9)
[2019-02-10] MEDS: LEVETIRACETAM 500MG/5ML CUP PO SCH (09:54)
[2019-02-10] MEDS: CLOPIDOGREL 75MG TABLET PO SCH ×2 (09:54→09:55)
[2019-02-10] MEDS: ASPIRIN 81MG TABLET PO SCH (09:55)
[2019-02-10] MEDS: PHENYTOIN SODIUM EXTENDED 100MG CAPSULE PO SCH (09:55)
[2019-02-10] MEDS ORDERED: LEVOFLOXACIN 250MG TABLET PO SCH (11:00)
== END 2019-02-10 11:29 | disposition home or self-care (01) | DRG 190 ==
LOC: ER 22:40 → 6WST 02-06 00:06 → ENRESERV 02-06 00:43 → 6WST 02-06 02:15 → 3WST 02-09 17:17
PROVIDERS: ADMIT Family Medicine; ATTEND Family Medicine
PROC: 5A1D70Z Performance of Urinary Filtration, Intermittent, Less than 6 Hours Per Day (ICD-10-PCS; 2019-02-07)
PROC: 4A023N7 Measurement of Cardiac Sampling and Pressure, Left Heart, Percutaneous Approach (ICD-10-PCS; principal; 2019-02-09)
PROC: B2111ZZ Fluoroscopy of Multiple Coronary Arteries using Low Osmolar Contrast (ICD-10-PCS; 2019-02-09)
PROC: B2151ZZ Fluoroscopy of Left Heart using Low Osmolar Contrast (ICD-10-PCS; 2019-02-09)
PROC: 5A1D70Z Performance of Urinary Filtration, Intermittent, Less than 6 Hours Per Day (ICD-10-PCS; 2019-02-09)
DX: I21.4 Non-ST elevation (NSTEMI) myocardial infarction (principal); E43 Unspecified severe protein-calorie malnutrition; N18.6 End stage renal disease; I13.11 Hypertensive heart and chronic kidney disease without heart failure, with stage 5 chronic kidney disease, or end stage renal disease; E83.39 Other disorders of phosphorus metabolism; E87.6 Hypokalemia; G40.909 Epilepsy, unspecified, not intractable, without status epilepticus; D63.1 Anemia in chronic kidney disease; M21.371 Foot drop, right foot; E87.5 Hyperkalemia; M21.372 Foot drop, left foot; F17.210 Nicotine dependence, cigarettes, uncomplicated; Y90.2 Blood alcohol level of 40-59 mg/100 ml; I69.354 Hemiplegia and hemiparesis following cerebral infarction affecting left non-dominant side; Z93.1 Gastrostomy status; Z99.2 Dependence on renal dialysis; Z99.3 Dependence on wheelchair; Z86.14 Personal history of Methicillin resistant Staphylococcus aureus infection; Z68.20 Body mass index [BMI] 20.0-20.9, adult
CPT/HCPCS: 36415; 71045; 78582; 80048; 80061; 80185; 80305; 80320; 82550; 82553; 83605; 83735; 84100; 84443; 84484; 85027; 85379; 87077; 87186; 93005; 93306; 93458; 93970; 96365; 96372; 96375; 99291; A9558; C1760; C1769; C1887; C1893; J0885; J1165; J1644; J1650; J2250; J2270; J3010; J3480; J3490; J7040; J7060; Q9967; G0480

== ENCOUNTER 2019-03-28 23:45 | Emergency (ER) | payer MEDICAID ==
[~2019-03-28] VITALS: Ht 177.8 cm; Wt 55.0 kg
[~2019-03-28 23:45] MED LIST changes: -AMLO1TAB39 PO; +ASPI-1160 PO; -HYDR100T26 PO; +LEVO500T2 PO; -LEVO750T46 PO
[2019-03-28] MEDS ORDERED: ONDANSETRON HCL 4MG/2ML INJ IV STA (23:59)
[2019-03-29] MEDS ORDERED: LEVETIRACETAM 1000MG/100ML 100 ML IV ONE
[2019-03-29 00:53] LABS: BASOPHILS % 0.8 % (0.0-2.0); EOSINOPHILS % 3.8 % (0.0-5.0); HEMATOCRIT. 41.6 % (42.0-52.0); HEMOGLOBIN. 13.9 g/dL (14.0-18.0); LYMPHOCYTES % 27.2 % (20.0-50.0); MEAN CORPUSCULAR HEMOGLOBIN 34.2 pg (28.0-32.0); MEAN CORPUSCULAR VOLUME 102.6 fL (80.0-94.0); NEUTROPHILS % 62.2 % (40.0-76.0); RED BLOOD CELL COUNT 4.06 mill/uL (4.7-6.1)
[2019-03-29 00:54] LABS: CHLORIDE 104 mEq/L (98-107)
[2019-03-29 00:59] LABS: ETHANOL BLOOD < 10 mg/dL
[2019-03-29] MEDS ORDERED: PHENYTOIN SODIUM 500 MG in SODIUM CHLORIDE 0.9% 50 ML IV NR (02:30)
[2019-03-29 06:03] VITALS: BP 171/90
[2019-03-29 07:13] LABS: CLARITY URINE TURBID (CLEAR); COLOR URINE YELLOW (YELLOW); KETONES URINE NEGATIVE (NEGATIVE); LEUKOCYTE ESTERASE URINE 3+ (NEGATIVE); NITRITE URINE NEGATIVE (NEGATIVE); OCCULT BLOOD URINE 2+ (NEGATIVE); PH URINE 8.5 (4.5-8.0); PROTEIN URINE 2+ (NEGATIVE); SPECIFIC GRAVITY URINE 1.012 (1.005-1.030); UROBILINOGEN URINE 0.2 E.U./dL (0.2-1.0)
[2019-03-29 07:33] LABS: *AMPHETAMINES SCREEN URINE NEGATIVE (NEGATIVE); *BARBITURATES SCREEN URINE NEGATIVE (NEGATIVE); *BENZODIAZEPINES SCREEN URINE NEGATIVE (NEGATIVE); *COCAINE SCREEN URINE NEGATIVE (NEGATIVE); CANNABINOID URINE SCREEN NEGATIVE (NEGATIVE); METHADONE URINE SCREEN NEGATIVE (NEGATIVE); OPIATES URINE SCREEN NEGATIVE (NEGATIVE)
[2019-03-29 07:34] LABS: PHENCYCLIDINE URINE SCREEN NEGATIVE (NEGATIVE)
== END 2019-03-29 06:28 | disposition home or self-care (01) ==
LOC: ER 23:45
DX: G40.909 Epilepsy, unspecified, not intractable, without status epilepticus (principal); I12.9 Hypertensive chronic kidney disease with stage 1 through stage 4 chronic kidney disease, or unspecified chronic kidney disease; N18.9 Chronic kidney disease, unspecified; Z86.73 Personal history of transient ischemic attack (TIA), and cerebral infarction without residual deficits; Z91.018 Allergy to other foods
CPT/HCPCS: 36415; 80053; 80185; 80305; 80320; 81003; 82962; 84484; 85025; 87077; 87086; 87186; 93005; 96365; 96366; 96367; 96375; 99284; J1165; J1953; J2405; G0480

== ENCOUNTER 2019-05-03 22:46 | Inpatient (IN) | payer MEDICAID ==
[~2019-05-03] VITALS: Ht 185.4 cm; Wt 59.4 kg
[~2019-05-03 22:46] MED LIST changes: +AMLO10TA80 PO; -LEVO500T2 PO; +LOSA100T3 PO
[2019-05-04 03:10] LABS: BASOPHILS % 0.7 % (0.0-2.0); EOSINOPHILS % 1.7 % (0.0-5.0); HEMATOCRIT. 36.1 % (42.0-52.0); HEMOGLOBIN. 11.9 g/dL (14.0-18.0); MEAN CORPUSCULAR HEMOGLOBIN 34.6 pg (28.0-32.0); MEAN CORPUSCULAR VOLUME 104.5 fL (80.0-94.0); MONOCYTES % 5.9 % (2.0-8.0); NEUTROPHILS % 76.7 % (40.0-76.0); PLATELET 124 x1000/uL (130-400); RED BLOOD CELL COUNT 3.45 mill/uL (4.7-6.1); RED CELL DISTRIBUTION WIDTH 16.4 % (11.6-14.6)
[2019-05-04 08:20] VITALS: BP 165/89
[2019-05-04] MEDS ORDERED: ENOXAPARIN 40MG/0.4ML SYR SUBCUT SCH (10:15)
[2019-05-04] MEDS ORDERED: ACETAMINOPHEN 325MG TABLET PO PRN (10:15)
[2019-05-04] MEDS ORDERED: IPRATROPIUM/ALBUTEROL 0.5-3(2.5)MG/3ML NEB INH PRN (10:15)
[2019-05-04] MEDS ORDERED: MAGNESIUM/ALUMINUM HYDROXIDE/SIMETHICONE 30ML UDC PO PRN (10:15)
[2019-05-04] MEDS ORDERED: NITROGLYCERIN 0.4MG TABLET SL SL PRN (10:15)
[2019-05-04] MEDS ORDERED: DOCUSATE SODIUM 100MG CAPSULE PO PRN (10:15)
[2019-05-04] MEDS ORDERED: CLONIDINE 0.1MG TABLET PO PRN (10:15)
[2019-05-04] MEDS ORDERED: GUAIFENESIN 200MG/10ML SUGAR FREE UDC PO PRN (10:15)
[2019-05-04] MEDS ORDERED: ENOXAPARIN 30MG/0.3ML SYR SUBCUT SCH (10:30)
[2019-05-04] MEDS: PHENYTOIN SODIUM EXTENDED 100MG CAPSULE PO SCH (11:27)
[2019-05-04 12:00] VITALS: BP 151/80
[2019-05-04 15:25] VITALS: BP 151/80
[2019-05-04 16:00] VITALS: BP 156/76
[2019-05-04 20:00] VITALS: BP 159/85
[2019-05-04] MEDS ORDERED: SODIUM POLYSTYRENE SULFONATE 15 G/60 ML BOT PO NR (21:00)
[2019-05-04] MEDS ORDERED: LEVETIRACETAM 500MG TABLET PO SCH (21:00)
[2019-05-04 23:06] LABS: *AMPHETAMINES SCREEN URINE NEGATIVE (NEGATIVE); *BARBITURATES SCREEN URINE NEGATIVE (NEGATIVE); *BENZODIAZEPINES SCREEN URINE NEGATIVE (NEGATIVE); *COCAINE SCREEN URINE NEGATIVE (NEGATIVE); CANNABINOID URINE SCREEN NEGATIVE (NEGATIVE)
[2019-05-04 23:07] LABS: METHADONE URINE SCREEN NEGATIVE (NEGATIVE); OPIATES URINE SCREEN NEGATIVE (NEGATIVE); PHENCYCLIDINE URINE SCREEN NEGATIVE (NEGATIVE)
[2019-05-05] VITALS (18 sets, daily range): BP systolic 96–172; BP diastolic 63–104
[2019-05-05] MEDS: FAMOTIDINE 20MG TABLET PO SCH ×2 (00:43→20:52)
[2019-05-05] MEDS: PHENYTOIN SODIUM EXTENDED 100MG CAPSULE PO PRN ×2 (00:44→19:12)
[2019-05-05] MEDS: LEVETIRACETAM 500MG/5ML CUP PO SCH ×3 (00:48→20:52)
[2019-05-05] MEDS: FOLIC ACID/VITAMIN B COMP W-C TABLET PO SCH (09:00)
[2019-05-05] MEDS: LOSARTAN POTASSIUM 50 MG TABLET PO SCH (09:30)
[2019-05-05] MEDS: PHENYTOIN SODIUM EXTENDED 100MG CAPSULE PO SCH (09:34)
[2019-05-05] MEDS ORDERED: CEFAZOLIN 1000MG PREMIX 50 ML IV ONE ×2 (09:59→10:00)
[2019-05-05] MEDS ORDERED: FENTANYL CITRATE/PF 50MCG/ML 2ML VIAL ONE (10:00)
[2019-05-05] MEDS ORDERED: SODIUM BICARBONATE 4% (2.4MEQ) 5ML VIAL IV ONE (10:04)
[2019-05-05] MEDS ORDERED: HEPARIN 1000 UNITS/ML 10ML ONE (10:04)
[2019-05-05] MEDS ORDERED: LIDOCAINE HCL 1% 20ML VIAL (Pyxis) INJ ONE ×2 (10:05→13:41)
[2019-05-05 10:31] LABS: BASOPHILS % 0.8 % (0.0-2.0); EOSINOPHILS % 2.1 % (0.0-5.0); HEMATOCRIT. 33.9 % (42.0-52.0); HEMOGLOBIN. 11.2 g/dL (14.0-18.0); MEAN CORPUSCULAR HEMOGLOBIN 34.2 pg (28.0-32.0); MEAN CORPUSCULAR VOLUME 103.7 fL (80.0-94.0); MEAN PLATELET VOLUME 9.5 fl (7.4-10.4); MONOCYTES % 7.5 % (2.0-8.0); NEUTROPHILS % 71.6 % (40.0-76.0); PLATELET 106 x1000/uL (130-400); RED BLOOD CELL COUNT 3.27 mill/uL (4.7-6.1); RED CELL DISTRIBUTION WIDTH 16.2 % (11.6-14.6)
[2019-05-05] MEDS ORDERED: IOHEXOL-300 50 ML BOTTLE IV ONE (14:09)
[2019-05-05] MEDS ORDERED: FENTANYL CITRATE/PF 50MCG/ML 2ML VIAL IV NR (14:30)
[2019-05-05] MEDS: ONDANSETRON HCL 4MG/2ML INJ IV PRN (20:52)
[2019-05-05] MEDS: ZOLPIDEM TARTRATE 5MG TABLET PO PRN (22:29)
[2019-05-06] VITALS: BP 131/83
[2019-05-06 04:00] VITALS: BP 136/75
[2019-05-06] MEDS: ONDANSETRON HCL 4MG/2ML INJ IV PRN (06:15)
[2019-05-06 08:10] VITALS: BP 148/82
[2019-05-06] MEDS: FOLIC ACID/VITAMIN B COMP W-C TABLET PO SCH (09:00)
[2019-05-06] MEDS: LEVETIRACETAM 500MG/5ML CUP PO SCH ×2 (09:00→21:29)
[2019-05-06] MEDS: PHENYTOIN SODIUM EXTENDED 100MG CAPSULE PO SCH ×2 (09:00→19:09)
[2019-05-06] MEDS: LOSARTAN POTASSIUM 50 MG TABLET PO SCH (09:00)
[2019-05-06] MEDS ORDERED: PHENYTOIN SODIUM 100MG/2ML VIAL IV SCH (11:00)
[2019-05-06 11:57] VITALS: BP_SYST 116; BP_SYST 139; BP_DIAS 55; BP_DIAS 80
[2019-05-06] MEDS ORDERED: PHENYTOIN SODIUM 400 MG in SODIUM CHLORIDE 0.9% 50 ML IV NR (12:00)
[2019-05-06] MEDS ORDERED: KETOROLAC 15MG/ML VIAL IV PRN (13:00)
[2019-05-06] MEDS ORDERED: BUPIVACAINE HCL/EPINEPHRINE 0.5%/0.0005 30ML ONE (13:20)
[2019-05-06] MEDS ORDERED: BACITRACIN 50,000 UNITS/VIAL ONE (13:20)
[2019-05-06] MEDS ORDERED: MIDAZOLAM HCL 2 MG/2 ML VIAL ONE (13:36)
[2019-05-06] MEDS ORDERED: LIDOCAINE HCL/PF 1% 10 MG/ML 5ML VIAL ONE (13:36)
[2019-05-06] MEDS ORDERED: GLYCOPYRROLATE 0.2 MG/ML 2ML VIAL ONE (13:36)
[2019-05-06] MEDS ORDERED: FENTANYL CITRATE/PF 50MCG/ML 2ML VIAL ONE (13:36)
[2019-05-06] MEDS ORDERED: PROPOFOL 200MG/20ML VIAL IV ONE (13:36)
[2019-05-06] MEDS ORDERED: METOCLOPRAMIDE HCL 10MG/2ML VIAL ONE (13:37)
[2019-05-06] MEDS ORDERED: SUCCINYLCHOLINE CHLORIDE 200MG/10ML IV ONE (13:37)
[2019-05-06] MEDS ORDERED: ONDANSETRON HCL 4MG/2ML INJ ONE (13:37)
[2019-05-06] MEDS ORDERED: CEFAZOLIN SODIUM 1000MG/VIAL ONE (13:56)
[2019-05-06] MEDS ORDERED: SODIUM CHLORIDE 0.9% 10ML VIAL ONE (13:56)
[2019-05-06 20:00] VITALS: BP 147/85
[2019-05-06] MEDS: FAMOTIDINE 20MG TABLET PO SCH (21:28)
[2019-05-06] MEDS: ZOLPIDEM TARTRATE 5MG TABLET PO PRN (21:28)
[2019-05-07] VITALS (14 sets, daily range): BP systolic 103–162; BP diastolic 59–96
[2019-05-07] MEDS: MORPHINE SULFATE 2 MG/ML CPJ (NOT FOR IM USE) IV PRN ×2 (00:57→06:53)
[2019-05-07] MEDS ORDERED: PHENYTOIN SODIUM EXTENDED 100MG CAPSULE PO PRN (05:45)
[2019-05-07] MEDS ORDERED: PHENYTOIN SODIUM EXTENDED 100MG CAPSULE PO SCH (05:45)
[2019-05-07 06:55] LABS: BASOPHILS % 0.6 % (0.0-2.0); EOSINOPHILS % 3.8 % (0.0-5.0); HEMATOCRIT. 31.8 % (42.0-52.0); HEMOGLOBIN. 10.5 g/dL (14.0-18.0); LYMPHOCYTES % 17.7 % (20.0-50.0); MEAN CORPUSCULAR HEMOGLOBIN 34.8 pg (28.0-32.0); MEAN CORPUSCULAR VOLUME 105.4 fL (80.0-94.0); MEAN PLATELET VOLUME 8.7 fl (7.4-10.4); MONOCYTES % 10.6 % (2.0-8.0); NEUTROPHILS % 67.3 % (40.0-76.0); PLATELET 109 x1000/uL (130-400); RED BLOOD CELL COUNT 3.02 mill/uL (4.7-6.1); RED CELL DISTRIBUTION WIDTH 15.9 % (11.6-14.6)
[2019-05-07 07:24] LABS: CHLORIDE 97 mEq/L (98-107)
[2019-05-07 07:37] LABS: PHOSPHORUS 5.5 mg/dL (2.5-4.9)
[2019-05-07] MEDS ORDERED: SODIUM BICARBONATE 4% (2.4MEQ) 5ML VIAL IV ONE (08:34)
[2019-05-07] MEDS ORDERED: LIDOCAINE HCL 1% 20ML VIAL (Pyxis) INJ ONE (08:34)
[2019-05-07] MEDS ORDERED: CEFAZOLIN 1000MG PREMIX 50 ML IV ONE (08:38)
[2019-05-07] MEDS: LOSARTAN POTASSIUM 50 MG TABLET PO SCH (08:39)
[2019-05-07] MEDS: FOLIC ACID/VITAMIN B COMP W-C TABLET PO SCH (08:39)
[2019-05-07] MEDS: LEVETIRACETAM 500MG/5ML CUP PO SCH (08:40)
[2019-05-07] MEDS ORDERED: LIDOCAINE HCL/EPINEPHRINE 1%-EPI 1:100,000 20 ML VIAL ONE (08:42)
[2019-05-07] MEDS ORDERED: CEFAZOLIN 1000MG PREMIX 50 ML IV SCH (10:00)
[2019-05-07] MEDS ORDERED: AMLODIPINE 5MG TABLET PO SCH (10:45)
[2019-05-08] MEDS ORDERED: PHENYTOIN SODIUM EXTENDED 100MG CAPSULE PO SCH (09:00)
== END 2019-05-07 21:05 | disposition home or self-care (01) | DRG 466 ==
LOC: ER 22:46 → 6WST 05-04 04:47 → EDBEDREQ 05-04 04:51 → EDBEDREQTM 05-04 04:51 → ENRESERV 05-04 06:57
PROVIDERS: ADMIT Internal Medicine; ATTEND Internal Medicine
PROC: B5181ZA Fluoroscopy of Superior Vena Cava using Low Osmolar Contrast, Guidance (ICD-10-PCS; principal; 2019-05-05)
PROC: 02HV33Z Insertion of Infusion Device into Superior Vena Cava, Percutaneous Approach (ICD-10-PCS; 2019-05-05)
PROC: B548ZZA Ultrasonography of Superior Vena Cava, Guidance (ICD-10-PCS; 2019-05-05)
PROC: 5A1D70Z Performance of Urinary Filtration, Intermittent, Less than 6 Hours Per Day (ICD-10-PCS; 2019-05-05)
PROC: 0JPT3XZ Removal of Tunneled Vascular Access Device from Trunk Subcutaneous Tissue and Fascia, Percutaneous Approach (ICD-10-PCS; 2019-05-06)
PROC: 0JH63XZ Insertion of Tunneled Vascular Access Device into Chest Subcutaneous Tissue and Fascia, Percutaneous Approach (ICD-10-PCS; 2019-05-07)
PROC: 02HV33Z Insertion of Infusion Device into Superior Vena Cava, Percutaneous Approach (ICD-10-PCS; 2019-05-07)
PROC: B5181ZA Fluoroscopy of Superior Vena Cava using Low Osmolar Contrast, Guidance (ICD-10-PCS; 2019-05-07)
PROC: 02PYX3Z Removal of Infusion Device from Great Vessel, External Approach (ICD-10-PCS; 2019-05-07)
PROC: B548ZZA Ultrasonography of Superior Vena Cava, Guidance (ICD-10-PCS; 2019-05-07)
PROC: 5A1D70Z Performance of Urinary Filtration, Intermittent, Less than 6 Hours Per Day (ICD-10-PCS; 2019-05-07)
DX: T82.41XA Breakdown (mechanical) of vascular dialysis catheter, initial encounter (principal); I13.11 Hypertensive heart and chronic kidney disease without heart failure, with stage 5 chronic kidney disease, or end stage renal disease; E83.39 Other disorders of phosphorus metabolism; N18.6 End stage renal disease; E83.51 Hypocalcemia; E87.5 Hyperkalemia; G40.909 Epilepsy, unspecified, not intractable, without status epilepticus; D63.8 Anemia in other chronic diseases classified elsewhere; G81.94 Hemiplegia, unspecified affecting left nondominant side; F17.210 Nicotine dependence, cigarettes, uncomplicated; Z86.73 Personal history of transient ischemic attack (TIA), and cerebral infarction without residual deficits; Y84.1 Kidney dialysis as the cause of abnormal reaction of the patient, or of later complication, without mention of misadventure at the time of the procedure; Z93.1 Gastrostomy status; Z99.2 Dependence on renal dialysis; I25.2 Old myocardial infarction; Z86.14 Personal history of Methicillin resistant Staphylococcus aureus infection; Y92.89 Other specified places as the place of occurrence of the external cause; Z88.8 Allergy status to other drugs, medicaments and biological substances; Z79.82 Long term (current) use of aspirin; Z79.899 Other long term (current) drug therapy
CPT/HCPCS: 36415; 36558; 36589; 71045; 77001; 80048; 80185; 80305; 82542; 83036; 83735; 84100; 88300; 93970; 96372; 99152; 99153; 99285; C1750; C1752; C1769; C1887; J0171; J0330; J0690; J1165; J1642; J1644; J1650; J2250; J2270; J2405; J2704; J2765; J3010; J3490; Q9967; G0500

== ENCOUNTER 2020-03-21 05:03 | Emergency (ER) | payer MEDICAID ==
[~2020-03-21] VITALS: Ht 162.6 cm; Wt 55.0 kg
[2020-03-21] MEDS ORDERED: SODIUM CHLORIDE 0.9% 1,000 ML IV ONE (06:33)
[2020-03-21] MEDS ORDERED: LEVETIRACETAM 1000MG/100ML 100 ML IV ONE (06:45)
[2020-03-21 07:00] LABS: CHLORIDE 103 mEq/L (98-107)
[2020-03-21 07:01] LABS: BASOPHILS % 0.9 % (0.0-2.0); EOSINOPHILS % 1.1 % (0.0-5.0); HEMATOCRIT. 35.8 % (42.0-52.0); HEMOGLOBIN. 12.2 g/dL (14.0-18.0); MEAN CORPUSCULAR HEMOGLOBIN 36.2 pg (28.0-32.0); MEAN CORPUSCULAR VOLUME 105.9 fL (80.0-94.0); MEAN PLATELET VOLUME 8.6 fl (7.4-10.4); MONOCYTES % 7.1 % (2.0-8.0); NEUTROPHILS % 75.9 % (40.0-76.0); PLATELET 134 x1000/uL (130-400); RED BLOOD CELL COUNT 3.38 mill/uL (4.7-6.1); RED CELL DISTRIBUTION WIDTH 14.1 % (11.6-14.6)
[2020-03-21 07:03] LABS: ETHANOL BLOOD < 10 mg/dL
[2020-03-21 07:11] LABS: PHOSPHORUS 3.5 mg/dL (2.5-4.9)
[2020-03-21] MEDS ORDERED: PHENYTOIN SODIUM EXTENDED 100MG CAPSULE PO ONE (08:15)
[2020-03-21 09:03] LABS: CLARITY URINE TURBID (CLEAR); COLOR URINE DARK YELLOW (YELLOW); KETONES URINE NEGATIVE (NEGATIVE); LEUKOCYTE ESTERASE URINE 3+ (NEGATIVE); NITRITE URINE NEGATIVE (NEGATIVE); OCCULT BLOOD URINE 2+ (NEGATIVE); PROTEIN URINE 3+ (NEGATIVE); SPECIFIC GRAVITY URINE 1.017 (1.005-1.030); UROBILINOGEN URINE 0.2 E.U./dL (0.2-1.0)
[2020-03-21 09:17] LABS: *AMPHETAMINES SCREEN URINE NEGATIVE (NEGATIVE); *BARBITURATES SCREEN URINE NEGATIVE (NEGATIVE); *BENZODIAZEPINES SCREEN URINE NEGATIVE (NEGATIVE)
[2020-03-21 09:18] LABS: *COCAINE SCREEN URINE NEGATIVE (NEGATIVE); CANNABINOID URINE SCREEN NEGATIVE (NEGATIVE); METHADONE URINE SCREEN NEGATIVE (NEGATIVE); OPIATES URINE SCREEN NEGATIVE (NEGATIVE); PHENCYCLIDINE URINE SCREEN NEGATIVE (NEGATIVE)
[2020-03-21] MEDS ORDERED: LOSARTAN POTASSIUM 50 MG TABLET PO ONE (10:30)
[2020-03-21 17:44] VITALS: BP 178/93
== END 2020-03-21 18:44 | disposition home or self-care (01) ==
LOC: ER 05:03 → CANBEDREQ 16:50 → ER 18:44
DX: R56.9 Unspecified convulsions (principal); I12.0 Hypertensive chronic kidney disease with stage 5 chronic kidney disease or end stage renal disease; N18.6 End stage renal disease; I10 Essential (primary) hypertension; Z91.018 Allergy to other foods; Z79.899 Other long term (current) drug therapy
CPT/HCPCS: 36415; 70450; 71045; 80053; 80185; 80305; 80320; 81003; 83735; 84100; 84478; 84484; 85025; 87077; 87086; 87186; 96365; 96366; 99285; J1953; J7030; G0480

== ENCOUNTER 2020-04-13 17:30 | Inpatient (IN) | payer MEDICAID ==
[~2020-04-13] VITALS: Ht 170.2 cm; Wt 52.6 kg
[2020-04-13] MEDS ORDERED: ONDANSETRON HCL 4MG/2ML INJ IV STA (18:23)
[2020-04-13] MEDS ORDERED: LEVETIRACETAM 500MG PREMIX 100 ML IV ONE (18:30)
[2020-04-13 18:42] LABS: BASOPHILS % 2.9 % (0.0-2.0); EOSINOPHILS % 0.9 % (0.0-5.0); HEMATOCRIT. 31.6 % (42.0-52.0); HEMOGLOBIN. 10.6 g/dL (14.0-18.0); MEAN CORPUSCULAR HEMOGLOBIN 34.5 pg (28.0-32.0); MEAN CORPUSCULAR VOLUME 103.2 fL (80.0-94.0); MEAN PLATELET VOLUME 7.4 fl (7.4-10.4); MONOCYTES % 6.7 % (2.0-8.0); NEUTROPHILS % 69.5 % (40.0-76.0); PLATELET 236 x1000/uL (130-400); RED BLOOD CELL COUNT 3.06 mill/uL (4.7-6.1); RED CELL DISTRIBUTION WIDTH 14.6 % (11.6-14.6)
[2020-04-13 18:48] LABS: CHLORIDE 99 mEq/L (98-107)
[2020-04-13 22:00] VITALS: BP 143/96
[2020-04-13] MEDS ORDERED: HYDROCODONE/ACETAMINOPHEN 5/325MG TABLET PO PRN (22:00)
[2020-04-13] MEDS ORDERED: ONDANSETRON HCL 4MG/2ML INJ IV PRN (22:00)
[2020-04-13] MEDS ORDERED: LORAZEPAM 2MG/ML CPJ IV PRN (22:00)
[2020-04-13] MEDS ORDERED: MAGNESIUM/ALUMINUM HYDROXIDE/SIMETHICONE 30ML UDC PO PRN (22:00)
[2020-04-13] MEDS ORDERED: DIPHENHYDRAMINE 50MG/ML VIAL IV PRN (22:00)
[2020-04-14] VITALS: BP 143/85
[2020-04-14 04:00] VITALS: BP 164/89
[2020-04-14] MEDS: CLONIDINE 0.1MG TABLET PO PRN ×2 (05:25→21:20)
[2020-04-14] MEDS ORDERED: LEVETIRACETAM 500MG PREMIX 100 ML IV SCH (06:00)
[2020-04-14 06:37] LABS: CHLORIDE 100 mEq/L (98-107)
[2020-04-14 06:58] LABS: BASOPHILS % 0.8 % (0.0-2.0); EOSINOPHILS % 1.3 % (0.0-5.0); HEMOGLOBIN. 10.7 g/dL (14.0-18.0); LYMPHOCYTES % 17.3 % (20.0-50.0); MEAN CORPUSCULAR HEMOGLOBIN 34.9 pg (28.0-32.0); MEAN CORPUSCULAR VOLUME 104.3 fL (80.0-94.0); MONOCYTES % 7.7 % (2.0-8.0); NEUTROPHILS % 72.9 % (40.0-76.0); RED BLOOD CELL COUNT 3.07 mill/uL (4.7-6.1)
[2020-04-14 08:00] VITALS: BP 148/88
[2020-04-14] MEDS: AMLODIPINE 10MG TABLET PO SCH (09:00)
[2020-04-14] MEDS: ENOXAPARIN 30MG/0.3ML SYR SUBCUT SCH (10:15)
[2020-04-14 10:43] LABS: PLATELET 175 x1000/uL (130-400)
[2020-04-14] MEDS: LOSARTAN POTASSIUM 100 MG TABLET PO SCH (11:00)
[2020-04-14 11:48] VITALS: BP 140/81
[2020-04-14] MEDS: PYRIDOXINE HCL 50MG TABLET PO SCH (11:58)
[2020-04-14] MEDS: CALCIUM ACETATE 667MG CAPSULE PO SCH ×2 (13:25→17:22)
[2020-04-14 15:39] VITALS: BP 150/83
[2020-04-14 20:00] VITALS: BP 183/86
[2020-04-14] MEDS: PHENYTOIN SODIUM EXTENDED 100MG CAPSULE PO SCH (21:15)
[2020-04-14] MEDS: LEVETIRACETAM 250MG TABLET PO SCH (21:16)
[2020-04-15] VITALS: BP 166/88
[2020-04-15 08:00] VITALS: BP 125/89
[2020-04-15] MEDS: CALCIUM ACETATE 667MG CAPSULE PO SCH ×2 (08:32→12:17)
[2020-04-15] MEDS: LEVETIRACETAM 250MG TABLET PO SCH (08:32)
[2020-04-15] MEDS: PHENYTOIN SODIUM EXTENDED 100MG CAPSULE PO SCH (08:32)
[2020-04-15] MEDS: LOSARTAN POTASSIUM 100 MG TABLET PO SCH (08:33)
[2020-04-15] MEDS: AMLODIPINE 10MG TABLET PO SCH (08:33)
[2020-04-15] MEDS: ENOXAPARIN 30MG/0.3ML SYR SUBCUT SCH (08:34)
[2020-04-15] MEDS: PYRIDOXINE HCL 50MG TABLET PO SCH (08:41)
[2020-04-15] MEDS ORDERED: FOLIC ACID/VITAMIN B COMP W-C TABLET PO SCH (09:00)
[2020-04-15 10:53] VITALS: BP 125/89
[2020-04-15 11:27] LABS: HEMATOCRIT 34.3 % (42.0-52.0); HEMOGLOBIN 11.4 g/dL (14.0-18.0); MEAN CORPUSCULAR HEMOGLOBIN 34.7 pg (28.0-32.0); MEAN CORPUSCULAR VOLUME 104.6 fL (80.0-94.0); PLATELET 235 x1000/uL (130-400); RED BLOOD CELL COUNT 3.28 mill/uL (4.7-6.1); RED CELL DISTRIBUTION WIDTH 14.8 % (11.6-14.6)
[2020-04-15 12:00] VITALS: BP 158/95
[2020-04-15] MEDS: CLONIDINE 0.1MG TABLET PO PRN (12:18)
== END 2020-04-15 14:07 | disposition home or self-care (01) | DRG 53 ==
LOC: ER 17:30 → 8WST 20:50 → EDBEDREQTM 20:53 → EDBEDREQ 20:53 → ENRESERV 21:17
PROVIDERS: ADMIT Hospitalist; ATTEND Hospitalist
PROC: 5A1D70Z Performance of Urinary Filtration, Intermittent, Less than 6 Hours Per Day (ICD-10-PCS; principal; 2020-04-14)
DX: G40.909 Epilepsy, unspecified, not intractable, without status epilepticus (principal); N18.6 End stage renal disease; I25.2 Old myocardial infarction; I12.0 Hypertensive chronic kidney disease with stage 5 chronic kidney disease or end stage renal disease; G81.94 Hemiplegia, unspecified affecting left nondominant side; E87.1 Hypo-osmolality and hyponatremia; E43 Unspecified severe protein-calorie malnutrition; D63.1 Anemia in chronic kidney disease; Z99.2 Dependence on renal dialysis; Z68.1 Body mass index [BMI] 19.9 or less, adult; Z88.8 Allergy status to other drugs, medicaments and biological substances; Z79.899 Other long term (current) drug therapy
CPT/HCPCS: 36415; 71045; 80048; 80053; 80185; 82542; 83605; 85025; 85027; 93005; 93970; 99285; J1650; J1953; J2405